=== PATIENT | female | born 1940 | race Caucasian/White ===

== ENCOUNTER 2025-03-02 12:00 | Outpatient (REF) | payer MEDICARE, SELFPAY ==
--- OUTSIDE RECORDS SUMMARY | 2025-03-01 10:42 | XMS_ITS | Continuity of Care Document ---
Author Organization [facility] ter Address [address] [place] [id number]- Care Team Providers Care Loading Unit Operator Name Role Phone Abimale Ring MD Primary Care Physician [phone] Encounter [facility] Date(s): 02/24/25 - 03/01/[address] [address]- Encounter Diagnosis Back pain(Final) - 02/24/25 Discharge Disposition: A-Transfer SNF Attending Physician: Jany Gamble MD Admitting Physician: Praveen Wiggins MD Referring Physician: Not on Staff, Referring MD Encounter Type: Disch IP Allergies, Adverse Reactions, Alerts Substance Criticality Severity Reaction Reaction Severity Status Glutens GI Distress Active Lactose GI Distress Active Functional Status Functional Status Assessment Assessment Assessment Component Result Effecti ve Date Unspecifed Functional Status Assessment Skin abnormality typ e (observable entity) Erythema 02/25/25 Functional Status Assessment Assessment Assessment Component Result Effecti ve Date Unspecifed Functional Status Assessment Skin abnormality typ e (observable entity) Erythema 02/26/25 Functional Status Assessment Assessment Assessment Component Result Effecti ve Date Total score [AUDIT] 0 02/25/25 Functional Status Assessment Assessment Assessment Component Result Effecti ve Date Total Falls Risk Score 11 02/27 Functional Status Assessment Assessment Assessment Component Result Effecti ve Date Mahesh scale total score 6 02/24/25 Functional Status Assessment Assessment Assessment Component Result Effecti ve Date Unspecifed Functional Status Assessment Skin abnormality typ e (observable entity) Erythema 02/25/25 Functional Status Assessment Assessment Assessment Component Result Effecti ve Date Total Falls Risk Score 2 02/28 Functional Status Assessment Assessment Assessment Component Result Effecti ve Date Total Falls Risk Score 14 02/27 Functional Status Assessment Assessment Assessment Component Result Effecti ve Date Mahesh scale total score 13 01/12 Functional Status Assessment Assessment Assessment Component Result Effecti ve Date Disability status [CUBS] I'm Building Capacity - I have an asymptomatic condition controlled by services or medication 02/25/25 Difficulty communica ting in usual language No 02/25/25 Difficulty Reading O r Writing No 02/25/25 Do you have difficul ty dressing or bathing Yes 02/25/25 Because of a physica l, mental, or emotional condition, do you have difficulty doing errands alone such as visiting a physician's office or shopping Yes 02/25/25 Do you need any additional assistance or accommodations during your visit Yes 02/25/25 Are you deaf, or do you have serious difficulty hearing No 02/25/25 Are you blind, or do you have serious difficulty seeing, even when wearing glasses No 02/25/25 Because of a physica l, mental, or emotional condition, do you have serious difficulty concentrating, remembering, or making decisions No 02/25/25 Do you have serious difficulty walking or climbing stairs Yes 02/25/25 Immunizations Given and Recorded Vaccine Date Status Refusal Reason tetanus/diphtheria/pertussis, acel(Tdap) 10/02/23 Given [id number] bivalent booster vax 12/21/21 Recorded influenza virus vaccine, inactivated 12/14/21 Leo rded influenza virus vaccine, inactivated 01/12/18 Give n SARS-CoV-2 (COVID-19) mRNA-1273 vaccine 08/06/21 R ecorded SARS-CoV-2 (COVID-19) mRNA-1273 vaccine 01/13/21 R ecorded SARS-CoV-2 (COVID-19) mRNA-1273 vaccine 06/12/20 R ecorded SARS-CoV-2 (COVID-19) mRNA-1273 vaccine 05/15/20 R ecorded Medications Alive Womens 50+ Multivitamin Gummy oral tablet, chewable 1 tablet, By Mouth, Daily, 0 Refills, Maintenance, 02/24/25 8:52:00 AM EST, Partial fill upon patient request if the prescription is for a schedule II opioid drug. Start Date: 02/24/25 Status: Ordered Medication Dispense Status: Completed Total Allowed Fills: 1 Fills Dispensed: 0 Caltrate 600 with D By Mouth, 2 times a day, 0 Refills, Maintenance, 3/5/12 2:07:30 PM EST Start Date: 05/24/11 Status: Ordered Medication Dispense Status: Completed Total Allowed Fills: 1 Fills Dispensed: 0 citalopram 20 mg oral tablet 20 mg, 1, tablet, By Mouth, Daily, # 30 tablet, Refills 0, Maintenance, 01/08/18 1:31:19 AM EDT Start Date: 01/08/18 Status: Ordered Medication Dispense Status: Completed Quantity: 30.0 Unit: tablet Total Allowed Fills: 1 Fills Dispensed: 0 diclofenac 1.3% topical film, extended release 1 patch, Topically, 2 times a day, PRN for pain, # 30 patch, 0 Refills, Maintenance, 02/24/25 8:48:00 AM EST, Patch, Partial fill upon patient request if the prescription is for a schedule II opioid drug. Start Date: 02/24/25 Status: Ordered Medication Dispense Status: Completed Quantity: 30.0 Unit: patch Total Allowed Fills: 1 Fills Dispensed: 0 famotidine 40 mg oral tablet 1 tablet = 40 mg, By Mouth, Daily, 0 Refills, Maintenance, 02/24/25 8:50:00 AM EST, Partial fill upon patient request if the prescription is for a schedule II opioid drug. Start Date: 02/24/25 Status: Ordered Medication Dispense Status: Completed Total Allowed Fills: 1 Fills Dispensed: 0 Gemtesa 75 mg oral tablet 1 tablet = 75 mg, By Mouth, Daily, # 30 tablet, 0 Refills, Maintenance, 02/24/25 8:48:00 AM EST, Tablet, Partial fill upon patient request if the prescription is for a schedule II opioid drug. Start Date: 02/24/25 Status: Ordered Medication Dispense Status: Completed Quantity: 30.0 Unit: tablet Total Allowed Fills: 1 Fills Dispensed: 0 Macrobid macrocrystals-monohydrate 100 mg oral capsule 1 capsule = 100 mg, By Mouth, 2 times a day, for 1 days, # 2 capsule, 0 Refills, Acute 03/02/25 9:04:00 AM EST, 03/01/25 9:04:00 AM EST, Capsule, Partial fill upon patient request if the prescriptionis for a schedule II opioid drug. Start Date: 03/01/25 Stop Date: 03/02/25 Status: Ordered Medication Dispense Status: Completed Quantity: 2.0 Unit: capsule Total Allowed Fills: 1 Fills Dispensed: 0 meclizine 12.5 mg oral tablet = 12.5 mg, By Mouth, 3 times a day, PRN Other, vertigo, 0 Refills, Maintenance, 02/28/25 10:42:00 AM EST, Tablet, Partial fill upon patient request if the prescription is for a schedule II opioid drug. Start Date: 02/28/25 Status: Ordered Medication Dispense Status: Completed Total Allowed Fills: 1 Fills Dispensed: 0 tolterodine 4 mg oral capsule, extended release 1 capsule = 4 mg, By Mouth, Daily, # 30 capsule, 0 Refills, Maintenance, 10/06/21 9:54:00 AM EDT, CRCapsule, Partial fill upon patient request if the prescription is for a schedule II opioid drug. Start Date: 10/06/21 Status: Ordered Medication Dispense Status: Completed Quantity: 30.0 Unit: capsule Total Allowed Fills: 1 Fills Dispensed: 0 Tums 500 = 500 mg, Daily, 0 Refills, Maintenance, 03/19/22 1:02:00 PM EST, Partial fill upon patient requestif the prescription is for a schedule II opioid drug. Start Date: 03/19/22 Status: Ordered Medication Dispense Status: Completed Total Allowed Fills: 1 Fills Dispensed: 0 Vitamin D3 = 1,000 International_Units, By Mouth, Daily, 0 Refills, Maintenance, 05/24/11 2:07:21 PM EST Start Date: 05/24/11 Status: Ordered Medication Dispense Status: Completed Total Allowed Fills: 1 Fills Dispensed: 0 warfarin 7.5 mg oral tablet = 7.5 mg, By Mouth, Daily at supper, 0 Refills, Maintenance, 12/20/23 12:33:00 PM EDT, Tablet, Partial fill upon patient request if the prescription is for a schedule II opioid drug. Start Date: 12/20/23 Status: Ordered Medication Dispense Status: Completed Total Allowed Fills: 1 Fills Dispensed: 0 Zepbound Pen 7.5 mg/0.5 mL subcutaneous solution = 7.5 mg, Subcutaneous Injection, Every week, Tuesday rotate injection sites, # 2 mL, 0 Refills, Maintenance, 02/24/25 8:48:00 AM EST, Solution, Partial fill upon patient request if the prescription is for a schedule II opioid drug. Start Date: 02/24/25 Status: Ordered Medication Dispense Status: Completed Quantity: 2.0 Unit: mL Total Allowed Fills: 1 Fills Dispensed: 0 Mental Status Mental Status Assessment Assessment Assessment Component Result Effecti ve Date Eliceo coma score total 15 02/12 Mental Status Assessment Assessment Assessment Component Result Effecti ve Date Eliceo coma score total 15 02/23/25 Problem List Condition Confirmation Course Effective Dates Status H ealth Status Informant Anxiety Confirmed Active Atrial fibrillation with RVR Confirmed Active Oral thrush Confirmed Active Chronic diarrhea Confirmed Active Transaminitis Confirmed Active GERD (gastroesophageal reflux disease) Confirmed Active IBS (irritable bowel syndrome) Confirmed Active Lymphedema Confirmed Active Severe obesity Confirmed Active Varicose vein Confirmed Active Venous insufficiency NOS Confirmed Active Results Radiology Reports * Exam Date Time Procedure Performing Provider Status 02/25/25 4:38 PM MRI Brain W/O Contrast Au th (Verified) Notes: (MRI Brain W/O Contrast) Reason For Exam: Vertigo RESULT: MRI Brain W/O Contrast MRI Brain W/O Contrast INDICATION / CLINICAL QUESTION: Reason: Vertigo; Clinical Question(s): Vertigo; Order Comment: Please see Reference Text for complete list of contraindications - TECHNIQUE: Multiplanar, multisequence MRI of the brain was performed without contrast. COMPARISON: CT head 02/24/2025 FINDINGS: BRAIN and EXTRA-AXIAL SPACES: The midline structures, including sella, corpus callosum, and craniocervical junction, are unremarkable. There is no mass effect, midline shift, or effacement of the basal cisterns. On diffusion weighted imaging, there are no regions of restricted diffusion to indicatean acute or subacute infarct. There is no evidence of intracranial hemorrhage on susceptibility sensitive sequence. Mild scattered foci of T2 prolongation are seen in the white matter. Ventricles, cisterns, and sulci are moderately prominent, consistent with volume loss, without hydrocephalus. No abnormal extra-axial fluid collections are seen. Meningeal surfaces are normal. Normal major intracranial flow voids are present. EXTRACRANIAL SOFT TISSUES: There have been lens replacements bilaterally. There is mild scattered mucosal thickening in the paranasal sinuses, without fluid levels. Trace fluid collection/hematoma noted along the left temporal scalp. BONES: Marrow signal is preserved. IMPRESSION: 1. No acute/subacute infarct, mass, hemorrhage, or other acute intracranial abnormality. 2. T2/FLAIR hyperintense foci in the white matter, nonspecific but most likely reflecting chronic small vessel disease. WSN: [id number] Ordering Physician: Blanca Colvin Dictated By: William Ness DO Dictated Date/Time: 02/25/25 4:56 pm Reviewed By: William Ness DO Signed By: William Ness DO Signed Date/Time: 02/25/25 4:56 pm Transcribed By: ROXANA Transcribed Date/Time: 02/25/25 4:47 pm * Exam Date Time Procedure Performing Provider Status 02/24/25 4:[address] Angio Neck Auth (Verif ied) Notes: (CT Angio Neck) Reason For Exam: Bleed/stroke;Trauma RESULT: CT Angio Neck CT Angio Head CT Angio Neck INDICATION: Generalized weakness with mechanical fall. TECHNIQUE: CT angiogram of the head and neck was performed after bolus administration of intravenous contrast. 100 mL of Isovue 300 100cc vials was administered intravenously. Coronal and sagittal MIP reformatted images were obtained. Additional 3-D images were created on a separate workstation under concurrent supervision by the attending radiologist. All stenoses are measured using NASCET criteria. Weight-based protocol using automatic tube modulation was used to optimize exposure parameters. CTDIvol Body: 17.86 mGy, DLP Body: 681 mGy*cm. COMPARISON: Noncontrast CT head performed concurrently. FINDINGS: CTA OF THE NECK: Arch: There is a two vessel aortic arch, with common origin of the brachiocephalic artery and left common carotid artery. There is mild atherosclerotic plaque of the aortic arch, but origins of the supra aortic vessels are patent. Calcified atherosclerotic plaque in the brachiocephalic trunk bifurcation, resulting in mild stenosis of the right subclavian artery. The remainder of the subclavian artery is patent and normal in caliber. Kinking of the proximal right common carotid artery. Scatteredcalcified atherosclerotic plaques throughout the left subclavian artery, resulting in no significant stenosis. Right carotid system: The common carotid and cervical internal carotid arteries are patent. No stenosis (0%) by NASCET criteria. There is no dissection or aneurysm. Left carotid system: The common carotid and cervical internal carotid arteries are patent. There ispartially calcified atherosclerotic plaque at the carotid bifurcation, but no ICA stenosis (0%) by NASCET criteria. There is no dissection or aneurysm. There is a co-dominant vertebral artery system. Right vertebral: No significant stenosis. No evidence of dissection or aneurysm. Left vertebral: No significant stenosis. Mild irregularity/tortuosity in the distal V2/proximal V3 segment. No evidence of dissection or aneurysm. Other: Soft tissues and bones: No evidence of lymphadenopathy or mass. The thyroid is unremarkable. Dependent atelectases, otherwise clear lungs. Multilevel degenerative changes of the spine are noted, without acute osseous abnormality. CTA OF THE HEAD: Anterior circulation: Bilateral intracranial ICAs demonstrate atherosclerotic calcification with mild stenoses of the bilateral cavernous and supraclinoid ICAs. Hypoplastic right A1, otherwise bilateral DUY and MCA branches are patent. There is no significant stenosis, proximal cutoff, aneurysm, orvascular malformation. Posterior circulation: Mild irregularity and tortuosity of the left V3 segment. Otherwise, bilateral intracranial vertebral arteries, the basilar artery, prominent right posterior communicating artery, and bilateral superior cerebellar and posterior cerebral branches are patent. There is no significant stenosis, proximal cutoff, aneurysm, or vascular malformation. Veins: Major dural venous sinuses are patent. Other: Soft tissues and bones: No midline shift or effacement of the basal cisterns. No space-occupying hemorrhage. No acute territorial loss of amador-white matter differentiation. There have been lens extractions bilaterally. Mucosal thickening of the ethmoid air cells and rightmaxillary sinus. IMPRESSION: 1. No large vessel occlusion in the head and neck. 2. Scattered mild atherosclerotic stenoses as detailed above. A similar preliminary report was provided by [facility]. I have personally reviewed the images and I agree with this report. WSN: [id number] Ordering Physician: Blanac Colvin Dictated By: Juma Harper MD Dictated Date/Time: 02/25/25 10:57 a Reviewed By: Andra Gonzalez MD Signed By: Andra Gonzalez MD Signed Date/Time: 02/25/25 11:02 am Transcribed By: ROXANA Transcribed Date/Time: 02/25/25 10:53 am * Exam Date Time Procedure Performing Provider Status 02/24/25 4:[address] Angio Head Auth (Verif ied) Notes: (CT Angio Head) Reason For Exam: Bleed/stroke;Vertigo RESULT: CT Angio Head CT Angio Head CT Angio Neck INDICATION: Generalized weakness with mechanical fall. TECHNIQUE: CT angiogram of the head and neck was performed after bolus administration of intravenous contrast. 100 mL of Isovue 300 100cc vials was administered intravenously. Coronal and sagittal MIP reformatted images were obtained. Additional 3-D images were created on a separate workstation under concurrent supervision by the attending radiologist. All stenoses are measured using NASCET criteria. Weight-based protocol using automatic tube modulation was used to optimize exposure parameters. CTDIvol Body: 17.86 mGy, DLP Body: 681 mGy*cm. COMPARISON: Noncontrast CT head performed concurrently. FINDINGS: CTA OF THE NECK: Arch: There is a two vessel aortic arch, with common origin of the brachiocephalic artery and left common carotid artery. There is mild atherosclerotic plaque of the aortic arch, but origins of the supra aortic vessels are patent. Calcified atherosclerotic plaque in the brachiocephalic trunk bifurcation, resulting in mild stenosis of the right subclavian artery. The remainder of the subclavian artery is patent and normal in caliber. Kinking of the proximal right common carotid artery. Scatteredcalcified atherosclerotic plaques throughout the left subclavian artery, resulting in no significant stenosis. Right carotid system: The common carotid and cervical internal carotid arteries are patent. No stenosis (0%) by NASCET criteria. There is no dissection or aneurysm. Left carotid system: The common carotid and cervical internal carotid arteries are patent. There ispartially calcified atherosclerotic plaque at the carotid bifurcation, but no ICA stenosis (0%) by NASCET criteria. There is no dissection or aneurysm. There is a co-dominant vertebral artery system. Right vertebral: No significant stenosis. No evidence of dissection or aneurysm. Left vertebral: No significant stenosis. Mild irregularity/tortuosity in the distal V2/proximal V3 segment. No evidence of dissection or aneurysm. Other: Soft tissues and bones: No evidence of lymphadenopathy or mass. The thyroid is unremarkable. Dependent atelectases, otherwise clear lungs. Multilevel degenerative changes of the spine are noted, without acute osseous abnormality. CTA OF THE HEAD: Anterior circulation: Bilateral intracranial ICAs demonstrate atherosclerotic calcification with mild stenoses of the bilateral cavernous and supraclinoid ICAs. Hypoplastic right A1, otherwise bilateral DUY and MCA branches are patent. There is no significant stenosis, proximal cutoff, aneurysm, orvascular malformation. Posterior circulation: Mild irregularity and tortuosity of the left V3 segment. Otherwise, bilateral intracranial vertebral arteries, the basilar artery, prominent right posterior communicating artery, and bilateral superior cerebellar and posterior cerebral branches are patent. There is no significant stenosis, proximal cutoff, aneurysm, or vascular malformation. Veins: Major dural venous sinuses are patent. Other: Soft tissues and bones: No midline shift or effacement of the basal cisterns. No space-occupying hemorrhage. No acute territorial loss of amador-white matter differentiation. There have been lens extractions bilaterally. Mucosal thickening of the ethmoid air cells and rightmaxillary sinus. IMPRESSION: 1. No large vessel occlusion in the head and neck. 2. Scattered mild atherosclerotic stenoses as detailed above. A similar preliminary report was provided by [facility]. I have personally reviewed the images and I agree with this report. WSN: [id number] Ordering Physician: Blanca Colvin Dictated By: Juma Harper MD Dictated Date/Time: 02/25/25 10:57 a Reviewed By: Andra Gonzalez MD Signed By: Andra Gonzalez MD Signed Date/Time: 02/25/25 11:02 am Transcribed By: ROXANA Transcribed Date/Time: 02/25/25 10:53 am * Exam Date Time Procedure Performing Provider Status 02/24/25 1:[address] Angio Chest Auth (Beny phillips) Notes: (CT Angio Chest) Reason For Exam: PE suspected, Intermediate prob;Other: RESULT: CT Angio Chest CT Angio Chest INDICATION: Mechanical fall, states that her legs gave out. Denies LOC, unsure if head strike unsure what part of her body she initially fell on but reports back pain. no head pain. increasing diffculty ambulating baseline due to arthritis in knees; Reason: PE suspected, Intermediate prob; Clinical Question(s): Pulmonary Embolism TECHNIQUE: Spiral CTA of the chest was performed after rapid IV contrast administration without cardiac gating, triggered by an VICKIE on the main pulmonary artery. Images are formatted in multiple planes using 2-D multiplanar and 3-D maximum intensity projection. 70 cc of Isovue 300 100cc vials was administered intravenously. Weight-based protocol using automatic tube modulation was used to optimize exposure parameters. CTDIvol Body: 12.83 mGy, DLP Body: 858 mGy*cm. COMPARISONS: None. ANGIOGRAPHIC FINDINGS: No pulmonary embolism to the subsegmental level. Motion degradation moderately limits assessment ofdistal vessels. Normal caliber pulmonary arteries. Mild atherosclerotic calcification of the aorta without acute abnormality on this study performed without cardiac gating. NON-ANGIOGRAPHIC FINDINGS: Industrial Registered Nurse view findings, lines and tubes: None. Trachea and airways: Patent without evidence of tracheal or endobronchial lesion. Lungs and pleura: Moderate bilateral dependent atelectasis. Subsegmental atelectasis in the lingula. No consolidation. Faint 4 mm left upper lobe nodule (404:34). A solid nodule in the posterior leftlower lobe measuring 4 x 5 mm (404:71). No effusion or pneumothorax. Mediastinum and maliha: No mass or hematoma. No mediastinal or hilar lymphadenopathy. Dilated esophagus containing fluid and debris, which can elevate the risk of aspiration. Partially imaged thyroid is unremarkable. Heart: Heart is normal in size. Trace pericardial fluid without jammie effusion. Mild coronary artery calcification. Chest wall soft tissues: No acute abnormality. Diaphragm: Intact. Upper abdomen: No acute abnormality. Multiple circumscribed low-attenuation lesions in the liver compatible with simple cysts. Postsurgical changes in the right hepatic lobe. Bones: No acute abnormality. IMPRESSION: No evidence of pulmonary embolism. The esophagus is dilated and contains fluid/debris, which can elevate the risk of aspiration. No consolidation or findings of aspiration pneumonitis. There are two left lung nodules measuring up to 5 mm. If low risk for malignancy, no routine follow-up. If high risk, optional CT at 12 months. If unchanged, no further follow-up needed per Guidelines for Management of Incidental Pulmonary Nodules Detected on CT Images: From the Fleischner Society 2017. I have personally reviewed the images and I agree with this report. WSN: [id number] Ordering Physician: Griffin Castrejon Dictated By: bAe oBland MD Dictated Date/Time: 02/24/25 7:21 am Reviewed By: Shabbir Cunha MD Signed By: Shabbir Cunha MD Signed Date/Time: 02/24/25 7:26 am Transcribed By: ROXANA Transcribed Date/Time: 02/24/25 2:09 am * Exam Date Time Procedure Performing Provider Status 02/24/25 12:[address] Lumbar Spine W/O Contrast Auth (Verified) Notes: (CT Lumbar Spine W/O Contrast) Reason For Exam: Trauma RESULT: CT Lumbar Spine W/O Contrast CT Thoracic Spine W/O Contrast, CT Lumbar Spine W/O Contrast INDICATION: from home, pt experienced mechanical fall, states that her legs gave out. denies LOC, unsure if head strike unsure what part of her body she initially fell on but reports back pain. no head pain. increasing diffculty ambulating baseline due to arthritis in knees; Reason: Trauma; Clinical Question(s): Fracture Dislocation TECHNIQUE: Noncontrast CT of the thoracic and lumbar spine was performed. Bone and soft tissue algorithms were reconstructed along with coronal and sagittal computations. Weight-based protocol using automatic tube modulation was used to optimize exposure parameters. RADIATION DOSE PARAMETERS: CTDIvol Body: 64.20 mGy, DLP Body: 3492 mGy*cm. COMPARISON: 10/02/2023. FINDINGS: Spine: No fractures or bone lesion. Moderate multilevel degenerative changes are noted in the thoracic and lumbar spine including disc height loss, vacuum disc phenomenon, disc bulging, and bridging anterior osteophyte formation. Mild grade 1 anterolisthesis of L3 on L4. Unchanged focus of patchy sclerosis/bone island in the right ilium. Soft tissues: No acute abnormality in the paravertebral soft tissues. Mild bilateral dependent atelectasis. Partially visualized hepatic cyst is again noted. Postsurgical changes in the liver. Multiple bilateral simple cysts of the partially visualized kidneys, which require no dedicated imaging follow-up. Atherosclerotic vascular calcifications of the visualized abdominopelvic vasculature. IMPRESSION: Degenerative changes without evidence of an acute fracture or dislocation involving the thoracic orlumbar spine. I have personally reviewed the images and I agree with this report. WSN: [id number] Ordering Physician: Heather Tejeda Dictated By: Abe Boland MD Dictated Date/Time: 02/24/25 7:28 am Reviewed By: Shabbir Cunha MD Signed By: Shabbir Cunha MD Signed Date/Time: 02/24/25 7:33 am Transcribed By: ROXANA Transcribed Date/Time: 02/24/25 1:17 am * Exam Date Time Procedure Performing Provider Status 02/24/25 12:[address] Thoracic Spine W/O Contrast Auth (Verified) Notes: (CT Thoracic Spine W/O Contrast) Reason For Exam: Trauma RESULT: CT Thoracic Spine W/O Contrast CT Thoracic Spine W/O Contrast, CT Lumbar Spine W/O Contrast INDICATION: from home, pt experienced mechanical fall, states that her legs gave out. denies LOC, unsure if head strike unsure what part of her body she initially fell on but reports back pain. no head pain. increasing diffculty ambulating baseline due to arthritis in knees; Reason: Trauma; Clinical Question(s): Fracture Dislocation TECHNIQUE: Noncontrast CT of the thoracic and lumbar spine was performed. Bone and soft tissue algorithms were reconstructed along with coronal and sagittal computations. Weight-based protocol using automatic tube modulation was used to optimize exposure parameters. RADIATION DOSE PARAMETERS: CTDIvol Body: 64.20 mGy, DLP Body: 3492 mGy*cm. COMPARISON: 10/02/2023. FINDINGS: Spine: No fractures or bone lesion. Moderate multilevel degenerative changes are noted in the thoracic and lumbar spine including disc height loss, vacuum disc phenomenon, disc bulging, and bridging anterior osteophyte formation. Mild grade 1 anterolisthesis of L3 on L4. Unchanged focus of patchy sclerosis/bone island in the right ilium. Soft tissues: No acute abnormality in the paravertebral soft tissues. Mild bilateral dependent atelectasis. Partially visualized hepatic cyst is again noted. Postsurgical changes in the liver. Multiple bilateral simple cysts of the partially visualized kidneys, which require no dedicated imaging follow-up. Atherosclerotic vascular calcifications of the visualized abdominopelvic vasculature. IMPRESSION: Degenerative changes without evidence of an acute fracture or dislocation involving the thoracic orlumbar spine. I have personally reviewed the images and I agree with this report. WSN: [id number] Ordering Physician: Heather Tejeda Dictated By: Abe Boland MD Dictated Date/Time: 02/24/25 7:28 am Reviewed By: Shabbir Cunha MD Signed By: Shabbir Cunha MD Signed Date/Time: 02/24/25 7:33 am Transcribed By: ROXANA Transcribed Date/Time: 02/24/25 1:17 am * Exam Date Time Procedure Performing Provider Status 02/24/25 12:[address] Cervical Spine W/O Contrast Auth (Verified) Notes: (CT Cervical Spine W/O Contrast) Reason For Exam: Neck Pain;Other: RESULT: CT Cervical Spine W/O Contrast CT Head/Brain W/O Contrast, CT Cervical Spine W/O Contrast INDICATION: from home, pt experienced mechanical fall, states that her legs gave out. Denies loc, unsure if hs. Unsure what part of her body she initially fell on but reports back pain. no head pain.increasing difficulty ambulating baseline d t arthritis in knees; Reason: Trauma; Clinical Question(s): Subarachnoid Hemorrhage TECHNIQUE: Noncontrast head CT using axial technique was reconstructed in axial and coronal planes.Noncontrast spiral CT through the cervical spine was formatted in 3 planes. Automatic tube modulation was used for the cervical spine and iterative dose reconstruction was used for both the head and cervical spine to optimize scan parameters and image quality. CTDIvol Body: 23.90 mGy, DLP Body: 589 mGy*cm. CTDIvol Head: 40.20 mGy, DLP Head: 671 mGy*cm. COMPARISON: Noncontrast CT head and cervical spine-10/01/2023. FINDINGS: Industrial Registered Nurse View Findings, Lines and Tubes: Dental implant noted. BRAIN AND EXTRA-AXIAL SPACES: No parenchymal hemorrhage, midline shift, or mass effect. Amador-white matter differentiation is wellpreserved. No acute infarct. Negative insular ribbon sign. Atherosclerotic vascular calcification of the carotid arteries but negative hyperdense vessel sign. Mild prominence of the ventricles and sulci consistent with parenchymal volume loss. Mild low-density white matter changes. No subarachnoid hemorrhage. No subdural or epidural collection. CALVARIUM, SKULL BASE, AND SOFT TISSUES: No fractures or suspicious bony lesions. Hyperostosis frontalis interna. Mucosal thickening in the bilateral ethmoid air cells and the right maxillary sinus. Tiny polyp/mucus retention cyst in the left maxillary sinus. Otherwise, visualized paranasal sinuses and mastoid air cells are clear. Status-post bilateral lens extraction. The extracranial soft tissues are unremarkable. CERVICAL SPINE: No fracture. No acute osseous abnormalities. Normal alignment. No locked or perched facet. Moderate multilevel degenerative disc space narrowingand end plate irregularity. Left greater than right bilateral multilevel facet arthropathy. Unchanged bone island at the posterior aspect of the C6 vertebral body. OTHER BONES: No acute abnormality. CERVICAL SOFT TISSUES AND LUNG APICES: Normal soft tissues. Visualized lung apices are clear. Normal thyroid. IMPRESSION: No acute abnormality of the head or cervical spine. I have personally reviewed the images and I agree with this report. WSN: [id number] Ordering Physician: Heather Tejeda Dictated By: Abe Boland MD Dictated Date/Time: 02/24/25 7:08 am Reviewed By: Shabbir Cunha MD Signed By: Shabbir Cunha MD Signed Date/Time: 02/24/25 7:13 am Transcribed By: ROXANA Transcribed Date/Time: 02/24/25 0:44 am * Exam Date Time Procedure Performing Provider Status 02/24/25 12:[address] Head/Brain W/O Contrast Auth (Verified) Notes: (CT Head/Brain W/O Contrast) Reason For Exam: Trauma RESULT: CT Head/Brain W/O Contrast CT Head/Brain W/O Contrast, CT Cervical Spine W/O Contrast INDICATION: from home, pt experienced mechanical fall, states that her legs gave out. Denies loc, unsure if hs. Unsure what part of her body she initially fell on but reports back pain. no head pain.increasing difficulty ambulating baseline d t arthritis in knees; Reason: Trauma; Clinical Question(s): Subarachnoid Hemorrhage TECHNIQUE: Noncontrast head CT using axial technique was reconstructed in axial and coronal planes.Noncontrast spiral CT through the cervical spine was formatted in 3 planes. Automatic tube modulation was used for the cervical spine and iterative dose reconstruction was used for both the head and cervical spine to optimize scan parameters and image quality. CTDIvol Body: 23.90 mGy, DLP Body: 589 mGy*cm. CTDIvol Head: 40.20 mGy, DLP Head: 671 mGy*cm. COMPARISON: Noncontrast CT head and cervical spine-10/01/2023. FINDINGS: Industrial Registered Nurse View Findings, Lines and Tubes: Dental implant noted. BRAIN AND EXTRA-AXIAL SPACES: No parenchymal hemorrhage, midline shift, or mass effect. Amador-white matter differentiation is wellpreserved. No acute infarct. Negative insular ribbon sign. Atherosclerotic vascular calcification of the carotid arteries but negative hyperdense vessel sign. Mild prominence of the ventricles and sulci consistent with parenchymal volume loss. Mild low-density white matter changes. No subarachnoid hemorrhage. No subdural or epidural collection. CALVARIUM, SKULL BASE, AND SOFT TISSUES: No fractures or suspicious bony lesions. Hyperostosis frontalis interna. Mucosal thickening in the bilateral ethmoid air cells and the right maxillary sinus. Tiny polyp/mucus retention cyst in the left maxillary sinus. Otherwise, visualized paranasal sinuses and mastoid air cells are clear. Status-post bilateral lens extraction. The extracranial soft tissues are unremarkable. CERVICAL SPINE: No fracture. No acute osseous abnormalities. Normal alignment. No locked or perched facet. Moderate multilevel degenerative disc space narrowingand end plate irregularity. Left greater than right bilateral multilevel facet arthropathy. Unchanged bone island at the posterior aspect of the C6 vertebral body. OTHER BONES: No acute abnormality. CERVICAL SOFT TISSUES AND LUNG APICES: Normal soft tissues. Visualized lung apices are clear. Normal thyroid. IMPRESSION: No acute abnormality of the head or cervical spine. I have personally reviewed the images and I agree with this report. WSN: [id number] Ordering Physician: Heather Tejeda Dictated By: Abe Boland MD Dictated Date/Time: 02/24/25 7:08 am Reviewed By: Shabbir Cunha MD Signed By: Shabbir Cunha MD Signed Date/Time: 02/24/25 7:13 am Transcribed By: ROXANA Transcribed Date/Time: 02/24/25 0:44 am Vital Signs Most recent to oldest [Reference Range]: 1 2 3 Height 163 cm (03/01/25 8:56 AM) 163 cm (03/01/25 4:23 AM) 163 cm (03/01/25 12:08 AM) Weight 124.5 kg (02/25/25 5:45 PM) 124.5 kg (02/24/25 7:45 AM) 124.5 kg (02/24/25 2:07 AM) Oxygen Saturation [94-100 %] 95 % (03/01/25 8:56 AM) 92 % *L* (03/01/25 8:00 AM) 95 % (03/01/25 4:23 AM) Pulse Rate [55-90 bpm] 86 bpm (03/01/25 8:56 AM) 83 bpm (03/01/25 8:00 AM) 88 bpm (03/01/25 4:23 AM) Body Mass Index [18.5-24.99 kg/m2] 46.86 kg/m2 *H* (02/25/25 5:45 PM) 46.86 kg/m2 *H* (02/24/25 7:45 AM) 46.86 kg/m2 *H* (02/24/25 2:07 AM) Blood Pressure [90-138/55-84 mm Hg] 155/76mm Hg *H* (03/01/25 8:56 AM) 140/77mm Hg *H* (03/01/25 8:00 AM) 142/80mm Hg *H* (03/01/25 4:23 AM) Respiratory Rate [16-30 br/min] 20 br/min (03/01/25 8:56 AM) 18 br/min (03/01/25 8:00 AM) 18 br/min (03/01/25 4:23 AM) Temperature [96.8-100.4 DegF] 97.7 DegF (03/01/25 8:56 AM) 98.0 DegF (03/01/25 4:23 AM) 98.9 DegF (03/01/25 12:08 AM) Liters per Minute 2 L/min (02/26/25 8:00 AM) 2 L/min (02/26/25 5:35 AM) 2 L/min (02/26/25 1:49 AM) Mode of Delivery (Oxygen) Room air (03/01/25 8:56 AM) Room air (03/01/25 8:00 AM) Room air (03/01/25 4:23 AM) Blood pressure sites Arm, right (03/01/25 8:56 AM) Arm, right (03/01/25 8:00 AM) Arm, right (03/01/25 4:23 AM) Temperature Route Oral (03/01/25 8:56 AM) Oral (03/01/25 4:23 AM) Oral (03/01/25 12:08 AM) Dry Weight 124.5 kg (02/25/25 5:45 PM) 124.5 kg (02/24/25 7:45 AM) 124.5 kg (02/24/25 2:07 AM) Weight Obtained Via Patient/family state d (02/23/25 10:42 PM) Dry Weight Obtained Via Patient/family s tated (02/23/25 10:42 PM) Social History Social History Type Response Smoking Status Never smoker; Tobacc o user in household: No entered on: 12/25/13 Sex Female Sex Representation Female (finding) Status N/A Social Determinants of Health Assessment Assessment Assessment Component Result Effecti ve Date Unspecifed Social Determinants of Health Assessment Housing status I have housing 02/25/25 Are you worried abou t losing your housing [PRAPARE] No 02/25/25 How often do you see or talk to people that you care about and feel close to [PRAPARE] 6 or more times a week 02/25/25 Do you feel physical ly and emotionally safe where you currently live [PRAPARE] Yes 02/25/25 Have you or any fami ly members you live with been unable to get any of the following when it was really needed in past 1 year [PRAPARE] None 02/25/25 Has lack of transpor tation kept you from medical appointments, meetings, work, or from getting things needed for daily living No 02/25/25 Within the last year , have you been afraid of your partner or ex-partner No 02/25/25 Admission evaluation note * Blanca Colvin MD: PERFORM Event Display: Admission Note Authored Date: Patient: ??NICHOLAS BLANCHARD ? Age:??84 Years?Sex:??Female?:??1940?LOC:??[facility]?? Chief Complaint/Reason for Consultation from home, experienced ??[facility]. no hs, no loc, neg thinners, neg defomrities. endorsing midline back pain. states he knees and legs have been weak, had home PT x5 wks no improvement. 1 episode of emesis History of Present Illness Nicholas Blanchard is a 84F with pertinent medical history of Afib on Coumadin, irritable bowel syndrome,osteoarthritis, overactive bladder, chronic lymphedema and left sided humerus fracture presentedto ED following a fall at home. ?? Per patient, she was walking to her kitchen and felt like her knees gave away; states she feels shefelt backwards and unclear if she hit her head. No prodromal symptoms of dizziness/lightheadedness/nausea/vomiting before the fall. No LOC. Her called the EMS, who helped to sit her up, however she felt dizzy and vomited 4 times. No headache/confusion. She states she has had 3-4 episodes of fall in the past, however none were similar to this episode.?? Post fall, she complains of ongoing back pain, located to region of lumbar spine; associated withmarked tenderness. No skin bruising.?? She mentions she has urinary incontinence and recently received botox injection which helped with her symptoms intermittently, but noticed increased fequency??lately. No dysuria/burning micturition/suprapubic tenderness. ?? In ED: Vitals: T-98.2, P-105/min improved to 85/min with fluids; BP- 120s-145/70-80s saturating on 2L NC now Labs: Hb 13, WBC 11.2, Plt 219 INR 2.5 Na 141, K 4.4, Cl 104 Cr 1.04 ?? CT head/spine s/o no acute abnormality. Degenerative changes without evidence of acute fracture or dislocation in thoracic and lumbar spine. CTA chest r/o PE; dilated esophagus with increased risk for aspiration; no consolidation or findings for aspiration pneumonitis; unchanged 2 left lung nodules measuring upto 5mm. ?? UA 3+leukocyte, nitrites, slight bacteria; concerning fro UTI and thus received 1 dose of ceftriaxone and fluids.? When I went to see the patient, she was comfortable in her bed and was later joined by her on the bedside. She was emotional from recent sudden demise of her only sister from a brain bleedfollowing a fall; and was anxious about the same.?? Review of Systems Constitutional:??No weight loss, fever, chills, weakness or fatigue. Allergy/Immune: Denies any??Eczema or hives Eyes:??No visual loss, blurred vision, double vision or yellow sclera ENT:??No hearing loss, sneezing, congestion, runny nose or sore throat. Respiratory:??No shortness of breath, cough or sputum production. Cardiovascular:??No chest pain, chest pressure or chest discomfort. No palpitations or pedal edema. Gastrointestinal:??No anorexia, nausea, vomiting or diarrhea. No abdominal pain or blood in stool. Genitourinary:??No burning micturition. No urinary frequency or incontinence. Neurologic:+Dizziness of sitting up and eye movement??No headache, syncope, unilateral weakness, ataxia, numbness or tingling in the extremities. No change in bowel or bladder control. Musculoskeletal:+Back pain, central lumbar region??No muscle pain, joint pain or stiffness. Hematologic/Lymphatics:??No bleeding or bruising. No painful lymph nodes. Skin:??No rash or itching. Endocrine:??No reports of sweating. No cold or heat intolerance. No polyuria or polydipsia. Psychiatric:??No depression or anxiety. Objective Vital Signs?? Temperature: 98.6 DegF (02/24/25 07:45:00) Temperature Route: Oral (02/24/25 07:45:00) Pulse Rate:??96 bpm??High (02/24/25 15:56:00) Respiratory Rate: 17 br/min (02/24/25 15:56:00) Systolic Blood Pressure: 132 mm Hg (02/24/25 15:56:00) Diastolic Blood Pressure: 78 mm Hg (02/24/25 15:56:00) Blood pressure sites: Arm, right (02/24/25 15:56:00) Mean Arterial Pressure: 103 mm Hg (02/24/25 07:45:00) Pulse Pressure: 54 mm Hg (02/24/25 15:56:00) Oxygen Saturation: 96 % (02/24/25 15:56:00) Liters per Minute: 2 L/min (02/24/25 15:56:00) Mode of Delivery (Oxygen): Nasal cannula (02/24/25 15:56:00) Early Warning Score: 0 (02/24/25 16:08:00) ? Physical Exam Constitutional: Alert, in no distress. Mental Status: Oriented to person, place and time. Head: Normocephalic. Eyes: Pupils are equal, round and reactive to light. Extraocular muscles intact. Dizziness with extraocular movements, no nystagmus. Neck: Supple, Full range of motion. Respiratory: Clear to auscultation. No wheezing, rales or rhonchi. Cardiovascular: S1 S2 regular. No murmurs, rubs or gallops. Gastrointestinal: Abdomen soft, non-tender, non-distended. Normal bowel sounds. No pulsatile mass. No hepatosplenomegaly. Genitourinary: No costovertebral angle tenderness. Neurologic: Cranial nerves II-XII grossly intact. No focal neurological deficits. Flexor plantar response. Moves all extremities spontaneously. Sensation intact bilaterally. Skin: No rashes or lesions. No petechiae or purpura.?? Musculoskeletal: No cyanosis or clubbing. No gross deformities. Normal range of motion. Bilateral??pedal edema with??venous stasis.??Warm??well perfused??extremities. Psychiatric: Normal mood and affect Assessment/Plan Diagnoses Atrial fibrillation ??(I48.91) Back pain ??(M54.9) DVT (deep venous thrombosis) ??(I82.409) Dizziness ??(R42) Fall at home ??(W19.XXXA) CLOVER (generalized anxiety disorder) ??(F41.1) Head trauma ??(S09.90XA) Irritable bowel syndrome (IBS) ??(K58.9) OAB (overactive bladder) ??(N32.81) SIRS (systemic inflammatory response syndrome) ??(R65.10) Urinary tract infection ??(N39.0) ?? Assessment:??Nicholas Blanchard??84F with pertinent medical history of Afib on Coumadin, irritable bowel syndrome,osteoarthritis, overactive bladder, chronic lymphedema and recent left sided humerus fracture presented to ED following a fall at home with acute trauma r/o; admitted for concerns SIRS??with UTI and rule out of posterior circulation stroke. Neurology consulted, and following. ?? Fall at home (W19.XXXA) Dizziness (R42) Head trauma (S09.90XA) Back pain (M54.9) ? Patient had a fall at home; with no LOC and prodromal symptoms. Post- fall no state of confusion; however had 4 episodes of vomiting and dizziness (with position change and eye movements); along with pain and tenderness in lumbar region. CT head/spine ruled out acute trauma/fractures.?? No brusing??on??skin. Given the findings differentials include posterior circulation stroke, fall due to hypotension likely due to UTI, post-concussion syndrome. Neurology consulted and following, recommendations followed.?? Plan: -Neurology recommended: ??-CT angio head and neck ??-MRI brain without contrast ??-Continue Warfarin for now; no need for reversal yet -Orthostatics once pain is managed -PRN Tylenol for pain -Telemetry -PT eval later on in the hospital course ?? Urinary tract infection (N39.0) SIRS (systemic inflammatory response syndrome) (R65.10) ? Patient mentions having 3 UTI in last 1-2 years; states she has received antibiotics all the time; last episode was in 12/13 (completed Nitrofurantoin course). SIRS criteria met based on initial vitals. Unable to state symptoms since it overlaps with urinary incontinence UA s/o??3+leukocyte, nitrites, slight bacteria Plan: -Follow urine culture -Continue Ceftriaxone; can be discontinued if infection ruled out -Lactate level ?? OAB (overactive bladder) (N32.81):??Chronic history of overactive bladder with incontinence; statesshe leaks urine with standing up and wears diapers. On home Tolterodine and Vibegron (non-formulary) Plan: -Asked the patient to bring home medications and can be started here ?? Atrial fibrillation (I48.91) DVT (deep venous thrombosis) (I82.409) ? Patient mentions history of??DVT, likely in her hip but unable to tell more.?? She is on Coumadin; with goal INR 2-3.?? INR today 2.5 Plan: -Coumadin 7.5 every alternate day; 10mg on Fridays -Discussed with neurology, no reason to discontinue or reverse Coumadin currently -continue to monitor INR? CLOVER (generalized anxiety disorder) (F41.1):??Continue home Citalopram Irritable bowel syndrome (IBS) (K58.9):??Patient states alternate diarrhoea and constipation; had last bowel movement yesterday.? Quality Measures Code Status: Full Code Diet: Regular DVT prophylaxis: Coumadin (for Afiba dn h/o DVT) GI prophylaxis: Famotidine HCP/Family Update: Updated Padmaja (HCP) on bedside ?? Patient seen and discussed with Dr. Fredi Colvin MD Internal Medicine PGY1 ? Histories Allergies Allergies ?(Active and Proposed Allergies Only) Lactose? (Severity: Unknown severity, Onset: Unknown) ?Reactions: GI Distress Glutens? (Severity: Unknown severity, Onset: Unknown) ?Reactions: GI Distress ? Past Medical History/Problem List Active Problems(11) Anxiety Atrial fibrillation with RVR Chronic diarrhea GERD (gastroesophageal reflux disease) IBS (irritable bowel syndrome) Lymphedema Oral thrush Severe obesity Transaminitis Varicose vein Venous insufficiency NOS ? Social History Alcohol Details:??Use: Never. Employment/School Details:??Status: Retired. Exercise Details:??Self assessment: Poor condition. ??Regular exercise: No. Home/Environment Details:??Living situation: Home/Independent. ??Lives with: Spouse. Nutrition/Health Details:??Diet: Gluten free, lactose free. Substance Abuse Details:??Use: Never. Tobacco Details:??Use: Never smoker. ??Tobacco user in household: No. ? Family History Mother??(): Cancer of breast; Hysterectomy Father??(): Bladder cancer; Pancreatic cancer Sister: Cancer of breast; Hysterectomy ? Medications Home Medications Calcium And Vitamin D Combination (Caltrate 600 with D)??By Mouth 2 times a day Calcium Carbonate (Tums 500)??500 Milligram Daily Cholecalciferol (Vitamin D3)??1,000 International Unit By Mouth Daily Citalopram (citalopram 20 mg oral tablet)??20 Milligram 1 tablet By Mouth Daily Diclofenac Topical (diclofenac 1.3% topical film, extended release)??1 patch(es) Topically 2 times a day as needed for pain Famotidine (famotidine 40 mg oral tablet)??1 tab(s) 40 Milligram By Mouth Daily Multivitamin With Minerals (Alive Womens 50+ Multivitamin Gummy oral tablet, chewable)??1 tab(s) ByMouth Daily tirzepatide (Zepbound Pen 7.5 mg/0.5 mL subcutaneous solution)??7.5 Milligram Subcutaneous Injection Every week Tuesday rotate injection sites Tolterodine (tolterodine 4 mg oral capsule, extended release)??1 capsule 4 Milligram By Mouth Daily vibegron (Gemtesa 75 mg oral tablet)??1 tab(s) 75 Milligram By Mouth Daily Warfarin (warfarin 7.5 mg oral tablet)??7.5 Milligram By Mouth Daily at supper ? Results Abnormal Labs ?? BLOOD COUNT & DIFF Abs. Imm Gran?0.0 k/mm3 ()?02/24/2025 15:23 Abs. NRBC?0.0 k/mm3 ()?02/24/2025 15:23 Imm Gran?0.4 % ()?02/24/2025 15:23 Lymph %?11.8 % (Low)?02/24/2025 15:23 MCH?26.9 pg (Low)?02/24/2025 15:23 MCHC?31.9 Gm/dL (Low)?02/24/2025 15:23 Neut %?78.4 % (High)?02/24/2025 15:23 Nucleated RBC (Automated)?0.0 #/100 WBC'S ()?02/24/2025 15:23 RDW-SD?54.0 femtoliters (High)?02/24/2025 15:23 ?? CHEM GENERAL BUN?24 mg/dL (High)?02/24/2025 00:39 Creatinine-Blood?1.04 mg/dL (High)?02/24/2025 00:39 Estimated GFR Creatinine?54 ML/MIN/1.73 M2 ()?02/24/2025 00:39 Glucose Level?114 mg/dL (High)?02/24/2025 00:39 Glucose, POC?121 mg/dL (High)?02/24/2025 00:33 ?? COAG APTT?35.9 seconds (High)?02/24/2025 01:28 INR?2.5 (High)?02/24/2025 01:28 Protime (PT)?23.7 seconds (High)?02/24/2025 01:28 ?? UA/URINALYSIS Albumin, Urine?TRACE (Abnormal)?02/24/2025 02:05 Appear/Color, Urine?LIGHT YELLOW ()?02/24/2025:05 Bacteria?SLIGHT HPF (Abnormal)?02/24/2025 02:05 Bilirubin, Urine?NEGATIVE ()?02/24/2025:05 Glucose, Urine?NEGATIVE ()?02/24/2025 02:05 Hemoglobin, Urine?TRACE (Abnormal)?02/24/2025 02:05 Hold Urine Culture?Testing available 48 hours from time of collection. () ?02/24/2025:05 Ketones, Urine?NEGATIVE ()?02/24/2025 02:05 Leukocyte, Urine?3+ (Abnormal)?02/24/2025 02:05 Mucus?SLIGHT /LPF ()?02/24/2025 02:05 Nitrite, Urine?POSITIVE (Abnormal)?02/24/2025 02:05 RBC's, Urine?7 /HPF (High)?02/24/2025 02:05 Urobilinogen?NORMAL mg/dL ()?02/24/2025 02:05 WBC's, Urine?44 /HPF (High)?02/24/2025 02:05 ?? Note: Critical results are displayed in red. ? Electronically Signed on 02/24/25 05:52 PM Vinicius BENJAMIN, Blanca * Fredi BENJAMIN, Lalo R: PERFORM Event Display: Admission Note Authored Date: [id number] Attending Attestation: I have seen and evaluated this patient. I have discussed the case and its management with the resident and agree with the findings and plan as documented in the resident???s note. The patient is a 84-year-old female with above-mentioned past medical history who was admitted after fall with potential head strike (anticoagulated on warfarin).?? Laboratory workup largely unrevealing with mild increased leukocytes, no significant anemia, therapeutic INR, no significant electrolyte derangements.?? CT head negative for acute bleed or infarct, CT angio chest negative for PE, CT thoracic cervical and lumbar spine negative for acute fracture.?? Patient did vomit after initial fall and continues to endorse dizziness with even minor changes in head position and during extraoculareye examination.?? Otherwise neurological exam unremarkable.?? Unclear what precipitated the fall as patient states she recalls falling but cannot clearly state any prodromal symptoms, denies blacking out.?? Consulted neurology given patient had fall with possible head strike while on Coumadin and now with new persistent dizziness, which would not be typical for vertigo (patient denied any past vertigo history).?? Will continue on Coumadin, obtain imaging as per neurology to rule out posterior circulation stroke.?? Patient also with increased urinary frequency which could be a symptom of UTI,?? though she does carry diagnosis of overactive bladder.?? Will treat with ceftriaxone and follow-up urine culture.?? Will monitor patient on telemetry and check orthostatic signs once her pain is better controlled.?? Patient is full code. Electronically Signed on 02/24/25 08:49 PM Fredi BENJAMIN, Lalo Vilchis EKG study * Event Display: EKG Authored Date: * Event Display: EKG Authored Date: * Event Display: ECG 12-Lead Authored Date: Please click on pdf link to open report * Event Display: ECG 12-Lead Authored Date: Ventricular Rate: 95 BPM Atrial Rate: 95 BPM P-R Interval: 320 ms QRS Duration: 140 ms Q-T Interval: 388 ms QTC Calculation(Bazett): 487 ms R Sterling: -47 degrees T Sterling: -5 degrees Sinus rhythm with Premature atrial complexes with 1st degree A-V block Right bundle branch block Left anterior fascicular block Bifascicular block Cannot rule out Inferior infarct (masked by fascicular block?) , age undetermined Abnormal ECG When compared with ECG of 23-Feb-2025 23:02, No significant change was found Confirmed by SUDHIR GENAO MD ([id number]) on 02/28/2025 8:24:20 AM [place]: SUDHIR GENAO MD * Event Display: ECG 12-Lead Authored Date: Please click on pdf link to open report * Event Display: ECG 12-Lead Authored Date: Ventricular Rate: 104 BPM QRS Duration: 142 ms Q-T Interval: 366 ms QTC Calculation(Bazett): 481 ms R Sterling: -53 degrees T Sterling: -6 degrees Probably Sinus tachycardia with 1st degree A-V block Right bundle branch block Left anterior fascicular block Bifascicular block Possible Lateral infarct , age undetermined Cannot rule out Inferior infarct (masked by fascicular block?) , age undetermined Abnormal ECG When compared with ECG of 15-Dec-2023 16:59, rhythm is now regular Confirmed by Rodriguez Farrell ([id number]) on 02/25/2025 7:17:57 AM [place]: Rodriguez Farrell Procedure * Event Display: Cardiac Rhythm Strips Authored Date: * Event Display: Cardiac Rhythm Strips Authored Date: * Event Display: Cardiac Rhythm Strips Authored Date: Hospital Progress note * Tye BENJAMIN, Jany: PERFORM Event Display: Progress Note Hospital Authored Date: Patient: ??NICHOLAS BLANCHARD ? Age:??84 Years?Sex:??Female?:??1940?LOC:??[facility]?? Subjective seen and examined at bedside patient reports improvement in her vertigo/dizziness though still ongoing but frequency and intensity have improved no more dizziness back pain is better controlled ? Review of Systems -ve except above Objective Measurements?? Height: 163 cm (02/27/25) Weight: 124.5 kg (02/25/25) Dry Weight: 124.5 kg (02/25/25) Body Mass Index:??46.86 kg/m2??High (02/25/25) ? Vital Signs?? Temperature: 98.3 DegF (02/28/25 08:00:00) Temperature Route: Oral (02/28/25 08:00:00) Pulse Rate:??97 bpm??High (02/28/25 08:00:00) Pulse Rate, Lyin bpm (02/27/25 15:41:00) Systolic Blood Pressure, Lyin mm Hg (02/27/25 15:41:00) Diastolic Blood Pressure, Lyin mm Hg (02/27/25 15:41:00) Pulse Rate, Sittin bpm (02/27/25 15:41:00) Systolic Blood Pressure, Sittin mm Hg (02/27/25 15:41:00) Diastolic Blood Pressure, Sittin mm Hg (02/27/25 15:41:) Pulse Rate, Standin bpm (02/27/25 15:41:00) Systolic Blood Pressure, Standin mm Hg (02/27/25 15:41:00) Diastolic Blood Pressure, Standin mm Hg (02/27/25 15:41:) Pulse Rate, Standing 3 min: 120 bpm (02/27/25 15:41:00) Systolic Blood Pressure, Standing 3 min: 168 mm Hg (02/27/25:41:00) Diastolic Blood Pressure, Standing 3 min: 89 mm Hg (02/27/25 15:41:00) Respiratory Rate: 16 br/min (02/28/25 08:00:00) Systolic Blood Pressure:??141 mm Hg??High (02/28/25 08:00:00) Diastolic Blood Pressure: 79 mm Hg (02/28/25 08:00:00) Blood pressure sites: Arm, right (02/28/25 08:00:00) Pulse Pressure: 62 mm Hg (02/28/25 08:00:00) Oxygen Saturation: 94 % (02/28/25 08:00:00) Mode of Delivery (Oxygen): Room air (02/28/25 08:00:00) Early Warning Score: 2 (02/28/25 08:07:41) ? Intake/Output? 02/24 07:00 02/28 07:00 02/27 07:00 02/26 07:00 02/25 07:00 ?? 02/28 10:24 02/28 10:24 02/28 06:59 02/27 06:59 02/26 06:59 Intake ? 1196 ?120 ?236 ?720 ?120 Output ? 3620 ?0 ? 1150 ? 1920 ?550 Net Total ?-2424 ?120 ? -914 ?-1200 ? -430 ? Urine Count ?1 ?0 ?0 ?1 ?0 ? Physical Exam Constitutional: Alert, in no distress. Mental Status: Oriented to person, place and time. Respiratory: Clear to auscultation. No wheezing, rales or rhonchi.??on RA?? Cardiovascular: S1 S2 regular. No murmurs, rubs or gallops. Gastrointestinal: Abdomen soft, non-tender, non-distended. Normal bowel sounds. Genitourinary: No costovertebral angle tenderness. Neurologic: Cranial nerves II-XII grossly intact. No focal neurological deficits. Moves all extremities spontaneously. Sensation intact bilaterally. Skin: No rashes or lesions. No petechiae or purpura.?? Musculoskeletal: No cyanosis or clubbing. No gross deformities. Normal range of motion. Bilateral??pedal edema with??venous stasis.??Warm??well perfused??extremities. Psychiatric: Normal mood and affect _ Inpatient Medications Medications (16) Active SCHEDULED: (8) Ceftriaxone 1 Gm Inj (Ceftriaxone Inj) ??1 Gm, IVPB, Every 24 hours Citalopram 20 mg Tablet (citalopram 20 mg oral tablet) ??20 mg, By Mouth, Daily Famotidine 20 mg Tablet (famotidine 20 mg oral tablet) ??40 mg, By Mouth, Daily Lidocaine 5% Topical Patch (Lidocaine 5% Patch) ??1 each, Topically, Daily NaCl 0.9% Flush 3ml (NaCL 0.9% Flush) ??3 mL, IV Push, Every 8 hours Remove Patch (Remove Lidocaine Patch) ??5 each, Topically, Daily at bedtime Remove Patch (Remove Lidocaine Patch) ??5 each, Topically, Daily at bedtime Warfarin 2.5 mg Tablet (Warfarin) ??7.5 mg, By Mouth, Every other day CONTINUOUS: (0) PRN: (8) Acetaminophen 325 mg Tablet (Acetaminophen Tablet) ??650 mg, By Mouth, Every 4 hours Dextromethorphan-Guaifenesin 20 mg-200 mg/10 mL Liqu UD (Robitussin DM Liquid) ??10 mL, By Mouth, Every 4 hours Meclizine 12.5 mg Tablet (meclizine 12.5 mg oral tablet) ??12.5 mg, By Mouth, 3 times a day Melatonin 3 mg Tablet (Melatonin Tablet) ??3 mg, By Mouth, Daily at bedtime NaCl 0.9% Flush 3ml (NaCL 0.9% Flush) ??3 mL, IV Push, Every 8 hours Polyethylene Glycol 17 Gm Powder (MiraLax Powder) ??17 Gm 1 pack/packet, By Mouth, Daily Senna Tablet ??8.6 mg 1 tablet, By Mouth, 2 times a day Simethicone 80 mg Chewable Tablet (Simethicone Tablet) ??80 mg, Chew, 3 times a day ? Results Recent Labs COAG INR 1.5 (High)?? 02/28/2025 05:16 Protime (PT) 15.1 seconds (High)?? 02/28/2025 05:16 ?? MISC. CHEMISTRY Hold Green Top SPECIMEN DISCARDED AFTER 1 WEEK ()?? 02/28/2025 05:16 ? Abnormal Labs ?? COAG INR?1.5 (High)?02/28/2025 05:16 Protime (PT)?15.1 seconds (High)?02/28/2025 05:16 ?? HEME OTHER Hold Lavender Top?SPECIMEN DISCARDED AFTER 24 HOURS. ()?02/28/2025 05:16 ?? MISC. CHEMISTRY Hold Green Top?SPECIMEN DISCARDED AFTER 1 WEEK ()?02/28/2025 05:16 ?? Note: Critical results are displayed in red. ? Urinalysis?? No qualifying data available. ? Assessment/Plan Nicholas Blanchard??84F with pertinent medical history of Afib on Coumadin, irritable bowel syndrome,osteoarthritis, overactive bladder, chronic lymphedema and recent left sided humerus fracture presented to ED following a fall at home with acute trauma r/o; admitted for concerns SIRS??with UTI and rule out of posterior circulation stroke. Neurology consulted, and following. ? Assessment:??Fall at home (W19.XXXA), mechanical Dizziness (R42) Head trauma (S09.90XA) Back pain (M54.9) ? Patient had a fall at home; with no LOC and prodromal symptoms. Post- fall no state of confusion; however had 4 episodes of vomiting and dizziness (with position change and eye movements); along with pain and tenderness in lumbar region. CT head/spine ruled out acute trauma/fractures.?? Neurology consulted and following, recommendations followed.?? Stroke has been ruled out?? MRI brain without contrast??negative CT angio head and neck which is non acute?? Continue Warfarin for now; no need for reversal yet, INR wnl?? Likely peripheral vertigo orthostatic negative?? meclizine 12.5 mg tid prn for vertigo?? -PT eval??recommend rehab ?? Urinary tract infection (N39.0) SIRS (systemic inflammatory response syndrome) (R65.10) ? Patient mentions having 3 UTI in last 1-2 years; states she has received antibiotics all the time; last episode was in 12/13 (completed Nitrofurantoin course). SIRS criteria met based on initial vitals. Unable to state symptoms since it overlaps with urinary incontinence UA s/o??3+leukocyte, nitrites, slight bacteria Plan: - urine culture: growing ecoli -Continue Ceftriaxone? -will be discharged on Macrobid?? to complet 5??day course ?? OAB (overactive bladder) (N32.81):??Chronic history of overactive bladder with incontinence; statesshe leaks urine with standing up and wears diapers. On home Tolterodine and Vibegron (non-formulary) ?? Atrial fibrillation (I48.91) DVT (deep venous thrombosis) (I82.409) ? Patient mentions history of??DVT, likely in her hip but unable to tell more.?? She is on Coumadin; with goal INR 2-3.?? INR wnl?? Plan: -Coumadin 7.5 every alternate day; 10mg on Fridays -Discussed with neurology, no reason to discontinue or reverse Coumadin currently -continue to monitor INR? CLOVER (generalized anxiety disorder) (F41.1):??Continue home Citalopram Irritable bowel syndrome (IBS) (K58.9):??Patient states alternate diarrhoea and constipation; had last bowel movement yesterday. ? Quality Measures Code Status: Full Code Diet: Regular DVT prophylaxis: Coumadin (for Afib and?h/o DVT) GI prophylaxis:??Famotidine HCP/Family Update:??Updated Padmaja (HCP) on bedside OA ?? OMN: medically ready/awaiting rehab Electronically Signed on 02/28/25 10:40 AM Tye BENJAMIN, Jany Jose LPN, Mariah: PERFORM, SIGN, VERIFY Event Display: Progress Note Hospital Authored Date: [id number] Patient: NICHOLAS BLANCHARD Age: 84 years Sex: Female : 1940 Associated Diagnoses: None Author: Mariah Jose LPN Findings Problem Related to Alteration in Safety : Alteration in Safety/new 02/27/2025 23:00 EST Alteration in Safety Related to Injury Goals & Outcomes, Safety Psychosocial support will be provided to Pt/S.O. as needed, Pt/caregiver will state understanding of plan/goals of care, Pt will remain safe & injury free, Pt/caregiver will be offered appropriate resources & support, Pt/caregiver will verbalize understanding ofthe D/C plan, Resolved problem, Goals/Outcomes met Interventions, Safety Provide info on community resources for education, support, Provide teaching as needed BH Goals/Interventions, Safety Yes Safety, Problem Start 02/26/2025 21:07 Reviewed plan with, Safety Patient Patient Progression, Safety Pt progressing according to plan . Narrative/Incidental Patient is alert, and oriented x 4. Denied chest pain, SOB, and dizzines. On room air. No respiratory distress noted. Pt requested TUMS. Provider paged, and CLOVER Ortega put order in. Pt also medicated with Tylenol for c/o headache, and Melatonin. MT informed that the pt had 10 consecutive round of PVCs. Pt is stable, and in no distress. Provider jeannie, and CLOVER Ortega came to unit to evaluate strip. No new order placed. Cardiac rhythym is AFIB. Incontinent of bladder, and bowel. Primain place. Call ron within reach of pt. Bed in lowest, and locked position. Safety maintained.. Electronically Signed on 02/28/25 04:57 AM Mariah Jose LPN * Rhonda Ruiz RN: PERFORM, SIGN, VERIFY Event Display: Progress Note Hospital Authored Date: [id number] Patient: NICHOLAS BLANCHARD Age: 84 years Sex: Female : 1940 Associated Diagnoses: None Author: Rhonda Ruiz RN Findings Problem Related to Alteration in Safety : Alteration in Safety/new 02/27/2025 16:00 EST Alteration in Safety Related to Injury Goals & Outcomes, Safety Psychosocial support will be provided to Pt/S.O. as needed, Pt/caregiver will state understanding of plan/goals of care, Pt will remain safe & injury free, Pt/caregiver will be offered appropriate resources & support, Pt/caregiver will verbalize understanding ofthe D/C plan, Resolved problem, Goals/Outcomes met Interventions, Safety Provide info on community resources for education, support, Provide teaching as needed BH Goals/Interventions, Safety Yes Safety, Problem Start 02/26/2025 21:07 Reviewed plan with, Safety Patient Patient Progression, Safety Pt progressing according to plan . Evaluation Patient A&Ox4. Afib on tele. C/o dizziness, meclizine administered. Skin is intact. Clear lung sounds, on room air. Continent of bowel, patient c/o constipation, received PRN bowel meds, had large BM. Incontinent of bladder, primafit in place draining appropriately. Orthos completed, see flowsheets. IV abx administered as ordered. Awaiting safe discharge planning. Patient able to make needs known, call ron within reach. Hourly rounding done. Electronically Signed on 02/27/25 04:22 PM Joseph MEYERS, Rhonda Consult note * Shirley GALO, Galindo Carrizales: PERFORM Event Display: Consultation Note Authored Date: Patient: ??NICHOLAS BLANCHARD ? Age:??84 Years?Sex:??Female?:??1940?LOC:??[facility]?? Chief Complaint/Reason for Consult from home, experienced ??witnessed fall [facility] fall landing on hardwood floor. no hs, no loc, neg thinners, neg defomrities. endorsing midline back pain. states he knees and legs have been weak, had home PT x5 wks no improvement. 1 episode of emesis History of Present Illness Nicholas is an 84 year old female with a significant past medical hx of Afib (Warfarin), DVT, obesity who initially presented to the hospital after a fall, neurology consulted complaints of dizziness. Patient states that she was walking in her kitchen with use of her walker when she felt like her knees gave out , denies tripping. She first started to notice dizziness when EMS stood her up she felt like room was spinning. She mentioned that while she sits still in her bed, she is without any complaints of dizziness, it is only during change of position when it feels like the room is spinning.CT head??nonacute. On exam, patient states that her back is a little sore from sitting in bed, but denies any change in speech, vision or sensation. She denies any complaints of dizziness while laying in bed, demonstrates full strength, NIH 0. Review of Systems back is sore from laying in bed, denies any current complaints of dizziness Physical Exam Vitals & Measurements T:??98.6?F?? HR:??96??(Peripheral)?? RR:??22?? BP:??172/80?? SpO2:??97%?? HT:??163??cm?? WT:??124.5??kg?? BMI:??46.86?? Neuro Exam ?? Mental Status: ?alert and oriented to person, place, month, and year ?fluent and appropriate speech, no dysarthria ?able to identify simple objects ?able to follow simple and 2 step commands Cranial nerves:?PERRL ?EOMI ?VFF ?equal light touch sensation ?no facial asymmetry or droop no ptosis noted bilaterally muscle strength: ?appropriate muscle tone and bulk ?no tremors ?5/5 UE ?5/5 LE Sensation ?equal light touch sensation UE and LE Cerebellum ?Finger to nose intact bilaterally?Gait not assessed ?? Assessment/Plan Nicholas is an 84 year old female with a significant past medical hx of Afib (Warfarin), DVT, obesity who initially presented to the hospital after a fall, neurology consulted complaints of dizziness. Patient states that she was walking in her kitchen with use of her walker when she felt like her knees gave out , denies tripping. She first started to notice dizziness when EMS stood her up she felt like room was spinning. She mentioned that while she sits still in her bed, she is without any complaints of dizziness, it is only during change of position when it feels like the room is spinning.CT head??nonacute. On exam, patient states that her back is a little sore from sitting in bed, but denies any change in speech, vision or sensation. She denies any complaints of dizziness while laying in bed, demonstrates full strength, NIH 0. ?? DDX: dizziness described as room spinning without cerebellar findings, only present during change of position. Unlikely stroke, will rule out posterior circ infarct ?? Recommendations: - obtain CTA head/neck - obtain MRI brain without contrast - continue home Warfarin - Q4hr neuro checks - STAT head CT for acute worsening in neuro status - normotension BP goals - tele - consider checking orthostatic vitals ?? Neurology will continue to follow Discussed w/ Dr. Garvin and Dr. Colvin Problem List/Past Medical History Ongoing Anxiety Atrial fibrillation with RVR Chronic diarrhea GERD (gastroesophageal reflux disease) IBS (irritable bowel syndrome) Lymphedema Oral thrush Severe obesity Transaminitis Varicose vein Venous insufficiency NOS Procedure/Surgical History Liver cyst Home Medications Calcium And Vitamin D Combination: By Mouth, 2 times a day Calcium Carbonate: 500 mg, Daily Cholecalciferol: 1,000 International_Units, By Mouth, Daily Citalopram: 20 mg = 1 tablet, By Mouth, Daily Diclofenac Topical: 1 patch, Topically, 2 times a day, PRN (for pain) Famotidine: 40 mg = 1 tablet, By Mouth, Daily Multivitamin With Minerals: 1 tablet, By Mouth, Daily tirzepatide: 7.5 mg, Subcutaneous Injection, Every week, Tuesday rotate injection sites Tolterodine: 4 mg = 1 capsule, By Mouth, Daily vibegron: 75 mg = 1 tablet, By Mouth, Daily Warfarin: 7.5 mg, By Mouth, Daily at supper Allergies Glutens??GI Distress Lactose??GI Distress Social History Alcohol Use:Never Employment/School Status:Retired Exercise Self assessment:Poor condition Regular exercise:No Home/Environment Living situation:Home/Independent Lives with:Spouse Nutrition/Health Diet: (Don't list allergies here)Gluten free, lactose free Substance Abuse Use:Never Tobacco Use:Never smoker Tobacco user in household:No Family History Mother (): Cancer of breast; Hysterectomy Father (): Bladder cancer; Pancreatic cancer Sister: Cancer of breast; Hysterectomy Electronically Signed on 02/24/25 03:46 PM Shirley GALO, Galindo Carrizales Electronically Signed on 02/24/25 03:48 PM Quinn Garvin MD Note * Louise Cobb RN: PERFORM Event Display: Discharge/Transfer Note Hospital Authored Date: Nursing Discharge Note Entered On: 03/01/2025 10:42 EST Performed On: 03/01/2025 10:42 EST by Louise Cobb RN Nursing Discharge Note 2 Discharge Level of Care at Discharge : residential facility Discharge Time : 03/01/2025 10:42 EST Discharge Nursing Homes/Rehab Facilities : [facility] [employer] Utilized : No Patient Left Unit Via : Ambulance Patient Accompanied Off Unit with : Ambulance/Chair Van Personnel Handover Given to Transport Personnel : Yes DC Instructions Provided & Signed by Pt : Yes Patient Understands D/C Instructions : Yes Patient Instructions Discharge Signed : Yes Did Pt have Specialty Bed or Wound Vac : No Louise Cobb RN - 03/01/2025 10:42 EST Electronically Signed on 03/01/25 10:42 AM Louise Cobb RN * Jany Gamble MD: PERFORM, MODIFY Event Display: Discharge/Transfer Note Hospital Authored Date: Patient: ??NICHOLAS BLANCHARD ? Age:??84 Years?Sex:??Female?:??1940?LOC:??[facility]?? Patient Information Discharge Location: S15 Primary Care Physician: Lakritz MD, Abimael S Admit Date/Time: 02/24/2025 07:00 Discharge Disposition Discharge Disposition: Custodial Facility/Rehab Discharge Diagnosis Fall ([id number]) Back pain (M54.9) Fall at home (W19.XXXA) Head trauma (S09.90XA) Dizziness (R42) Urinary tract infection (N39.0) DVT (deep venous thrombosis) (I82.409) Atrial fibrillation (I48.91) SIRS (systemic inflammatory response syndrome) (R65.10) CLOVER (generalized anxiety disorder) (F41.1) OAB (overactive bladder) (N32.81) Irritable bowel syndrome (IBS) (K58.9) _ Discharge Medications Calcium And Vitamin D Combination (Caltrate 600 with D)??By Mouth 2 times a day Calcium Carbonate (Tums 500)??500 Milligram Daily Cholecalciferol (Vitamin D3)??1,000 International Unit By Mouth Daily Citalopram (citalopram 20 mg oral tablet)??20 Milligram 1 tablet By Mouth Daily Diclofenac Topical (diclofenac 1.3% topical film, extended release)??1 patch(es) Topically 2 times a day as needed for pain Famotidine (famotidine 40 mg oral tablet)??1 tab(s) 40 Milligram By Mouth Daily Meclizine (meclizine 12.5 mg oral tablet)??12.5 Milligram By Mouth 3 times a day as needed Other vertigo Multivitamin With Minerals (Alive Womens 50+ Multivitamin Gummy oral tablet, chewable)??1 tab(s) ByMouth Daily Nitrofurantoin (Macrobid macrocrystals-monohydrate 100 mg oral capsule)??1 capsule 100 Milligram ByMouth 2 times a day for 1 Days tirzepatide (Zepbound Pen 7.5 mg/0.5 mL subcutaneous solution)??7.5 Milligram Subcutaneous Injection Every week Tuesday rotate injection sites Tolterodine (tolterodine 4 mg oral capsule, extended release)??1 capsule 4 Milligram By Mouth Daily vibegron (Gemtesa 75 mg oral tablet)??1 tab(s) 75 Milligram By Mouth Daily Warfarin (warfarin 7.5 mg oral tablet)??7.5 Milligram By Mouth Daily at supper ? Discharge Medications New Meclizine (meclizine 12.5 mg oral tablet)12.5 Milligram Oral 3 times a day as needed Other. vertigo. Nitrofurantoin (Macrobid macrocrystals-monohydrate 100 mg oral capsule)1 capsule Oral twice a day for 1 Days. Refills: 0. Unchanged Calcium And Vitamin D Combination (Caltrate 600 with D)Oral twice a day. Calcium Carbonate (Tums 500)500 Milligram Daily. Cholecalciferol (Vitamin D3)1,000 International Unit Oral Daily. Citalopram (citalopram 20 mg oral tablet)1 tab(s) Oral Daily. Diclofenac Topical (diclofenac 1.3% topical film, extended release)1 patch(es) Topically twice a day as needed for pain. Famotidine (famotidine 40 mg oral tablet)1 tab(s) Oral Daily. Multivitamin With Minerals (Alive Womens 50+ Multivitamin Gummy oral tablet, chewable)1 tab(s) OralDaily. tirzepatide (Zepbound Pen 7.5 mg/0.5 mL subcutaneous solution)7.5 Milligram Subcutaneous Injection every week. Tuesday rotate injection sites. Tolterodine (tolterodine 4 mg oral capsule, extended release)1 capsule Oral Daily. vibegron (Gemtesa 75 mg oral tablet)1 tab(s) Oral Daily. Warfarin (warfarin 7.5 mg oral tablet)7.5 Milligram Oral Daily at supper. Hospital Course ??Nicholas Blanchard is a 84F with pertinent medical history of Afib on Coumadin, irritable bowel syndrome,osteoarthritis, overactive bladder, chronic lymphedema and left sided humerus fracture presented to ED following a fall at home. ?? Per patient, she was walking to her kitchen and felt like her knees gave away; states she feels shefelt backwards and unclear if she hit her head. No prodromal symptoms of dizziness/lightheadedness/nausea/vomiting before the fall. No LOC. Her called the EMS, who helped to sit her up, however she felt dizzy and vomited 4 times. No headache/confusion. She states she has had 3-4 episodes of fall in the past, however none were similar to this episode.?? Post fall, she complains of ongoing back pain, located to region of lumbar spine; associated withmarked tenderness. No skin bruising. She mentions she has urinary incontinence and recently received botox injection which helped with her symptoms intermittently, but noticed increased frequency lately. No dysuria/burning micturition/suprapubic tenderness. ?? She was admitted for dizziness to rule out a stroke.?? Underwent MRI brain negative for ?? Stroke, seen by neurology as well.?? Per neurology since her symptoms are positional it is likely secondary to BPPV and patient would need outpatient vestibular therapy.?? Her orthostatic vitals werenegative warfarin reversal was also discussed with neurology given head strike and was not recommended.?? He she worked with the PT and recommends rehab.?? Patient dizziness still ongoing but reportsimprovement in her dizziness.?? She was also started on meclizine as needed for vertigo.?? Given improvement in her symptoms patient will be discharged to rehab and patient would need outpatient vestibular therapy.?? Can try meclizine as needed for vertigo I have educated patient of not to operate a [place] heavy machinery if she has ongoing dizziness or drive car patient understands that. ? In regards to UTI patient grew E. coli, which was sensitive to ceftriaxone will be discharged on Macrobid to complete 5-day course. ?? Objective Assessment and Plan Assessment:??Fall at home (W19.XXXA), mechanical Dizziness (R42) Head trauma (S09.90XA) Back pain (M54.9) ? Patient had a fall at home; with no LOC and prodromal symptoms. Post- fall no state of confusion; however had 4 episodes of vomiting and dizziness (with position change and eye movements); along with pain and tenderness in lumbar region. CT head/spine ruled out acute trauma/fractures.?? Neurology consulted and following, recommendations followed.?? Stroke has been ruled out?? MRI brain without contrast??negative CT angio head and neck which is non acute?? Continue Warfarin for now; no need for reversal yet, INR wnl?? Likely peripheral vertigo orthostatic negative?? meclizine 12.5 mg tid prn for vertigo?? -PT eval??recommend rehab ?? Urinary tract infection (N39.0) SIRS (systemic inflammatory response syndrome) (R65.10) ? Patient mentions having 3 UTI in last 1-2 years; states she has received antibiotics all the time; last episode was in 12/13 (completed Nitrofurantoin course). SIRS criteria met based on initial vitals. Unable to state symptoms since it overlaps with urinary incontinence UA s/o??3+leukocyte, nitrites, slight bacteria Plan: - urine culture: growing ecoli -Continue Ceftriaxone? -will be discharged on Macrobid? OAB (overactive bladder) (N32.81):??Chronic history of overactive bladder with incontinence; statesshe leaks urine with standing up and wears diapers. On home Tolterodine and Vibegron (non-formulary) ?? Atrial fibrillation (I48.91) DVT (deep venous thrombosis) (I82.409) ? Patient mentions history of??DVT, likely in her hip but unable to tell more.?? She is on Coumadin; with goal INR 2-3.?? INR wnl?? Plan: -Coumadin 7.5 every alternate day; 10mg on Fridays -Discussed with neurology, no reason to discontinue or reverse Coumadin currently -continue to monitor INR? CLOVER (generalized anxiety disorder) (F41.1):??Continue home Citalopram Irritable bowel syndrome (IBS) (K58.9):??Patient states alternate diarrhoea and constipation; had last bowel movement yesterday. ? Vital Signs?? Temperature: 98 DegF (03/01/25 04:23:00) Temperature Route: Oral (03/01/25 04:23:00) Pulse Rate: 83 bpm (03/01/25 08:00:00) Respiratory Rate: 18 br/min (03/01/25 08:00:00) Systolic Blood Pressure:??140 mm Hg??High (03/01/25 08:00:00) Diastolic Blood Pressure: 77 mm Hg (03/01/25 08:00:00) Blood pressure sites: Arm, right (03/01/25 08:00:00) Mean Arterial Pressure: 101 mm Hg (03/01/25 04:23:00) Pulse Pressure: 63 mm Hg (03/01/25 08:00:00) Oxygen Saturation:??92 %??Low (03/01/25 08:00:00) Mode of Delivery (Oxygen): Room air (03/01/25 08:00:00) Early Warning Score: 2 (03/01/25 08:25:20) ? . Physical Exam Constitutional: Alert, in no distress. Mental Status: Oriented to person, place and time. Respiratory: Clear to auscultation. No wheezing, rales or rhonchi.??on RA?? Cardiovascular: S1 S2 regular. No murmurs, rubs or gallops. Gastrointestinal: Abdomen soft, non-tender, non-distended. Normal bowel sounds. Genitourinary: No costovertebral angle tenderness. Neurologic: Cranial nerves II-XII grossly intact. No focal neurological deficits. Moves all extremities spontaneously. Sensation intact bilaterally. Skin: No rashes or lesions. No petechiae or purpura.?? Musculoskeletal: No cyanosis or clubbing. No gross deformities. Normal range of motion. Bilateral??pedal edema with??venous stasis.??Warm??well perfused??extremities. Psychiatric: Normal mood and affect Consultants Neurology Patient Education Titles WebMD Ignite Patient Education - Benign Paroxysmal Positional Vertigo?? Follow-Up Appointments Added Follow Up ?Time Frame ?Comments Jhonathan BENJAMIN, Abimael Jones Patient Instructions You will go home with the following NEW medications: ?? Macrobid 100 mg bid for one more day to complete 5 day course of antibiotics Meclizine 12.5 mg 3 times a day prn for vertigo ?I??have not made any changes to your home medications, please continue to take as you usally??take? Activity changes: -?As tolerated. ? Who to follow up with after being discharged from the hospital: -??Please follow up at your primary??care doctor's office in 1-2 weeks. Please make appointment with the clinic. - Please follow up with?? outpatient vestibular tehrapist as outpatient. Please call office to schedule appointment. ? - You have any other concerns that you think require emergency management. Post Discharge Care Diet: ??Regular Diet ?? Discharge ?03/01/25 9:11:00 EST ?Order Comment:?? Results Discharge Labs BACTERIOLOGY Urine Culture Results Note (Abnormal)?? 02/24/2025 02:05 Urine Culture Specimen Source URINE ()?? 02/24/2025 02:05 ?? BLOOD COUNT & DIFF WBC 8.1 k/mm3 ()?? 02/25/2025 06:48 RBC 4.60 m/mm3 ()?? 02/25/2025 06:48 Hgb 12.1 Gm/dL ()?? 02/25/2025 06:48 Hct 38.8 % ()?? 02/25/2025 06:48 MCV 84.3 femtoliters ()?? 02/25/2025 06:48 MCH 26.3 pg (Low)?? 02/25/2025 06:48 MCHC 31.2 Gm/dL (Low)?? 02/25/2025 06:48 Platelet Count 189 k/mm3 ()?? 02/25/2025 06:48 RDW-SD 53.6 femtoliters (High)?? 02/25/2025 06:48 MPV 9.9 femtoliters ()?? 02/25/2025 06:48 Nucleated RBC (Automated) 0.0 #/100 WBC'S ()?? 02/25/2025 06:48 Abs. NRBC 0.0 k/mm3 ()?? 02/25/2025 06:48 Abs. Neut 7.0 k/mm3 ()?? 02/24/2025 15:23 Abs. Lymph 1.1 k/mm3 ()?? 02/24/2025 15:23 Abs. Blount 0.7 k/mm3 ()?? 02/24/2025 15:23 Abs. Eo 0.1 k/mm3 ()?? 02/24/2025 15:23 Abs. Baso 0.0 k/mm3 ()?? 02/24/2025 15:23 Neut % 78.4 % (High)?? 02/24/2025 15:23 Lymph % 11.8 % (Low)?? 02/24/2025 15:23 Blount % 7.9 % ()?? 02/24/2025 15:23 Eos % 1.3 % ()?? 02/24/2025 15:23 Baso % 0.2 % ()?? 02/24/2025 15:23 Imm Gran 0.4 % ()?? 02/24/2025 15:23 Abs. Imm Gran 0.0 k/mm3 ()?? 02/24/2025 15:23 ?? CHEM GENERAL Sodium 136 mmol/L ()?? 02/25/2025 06:48 Potassium 3.9 mmol/L ()?? 02/25/2025 06:48 Chloride 103 mmol/L ()?? 02/25/2025 06:48 Bicarbonate Level 26 mmol/L ()?? 02/25/2025 06:48 Anion Gap 7 mmol/L ()?? 02/25/2025 06:48 Glucose Level 106 mg/dL (High)?? 02/25/2025 06:48 Glucose, POC 121 mg/dL (High)?? 02/24/2025 00:33 BUN 13 mg/dL ()?? 02/25/2025 06:48 Creatinine-Blood 0.80 mg/dL ()?? 02/25/2025 06:48 Estimated GFR Creatinine 74 ML/MIN/1.73 M2 ()?? 02/25/2025 06:48 Calcium 8.7 mg/dL ()?? 02/25/2025 06:48 Lactate 1.7 mmol/L ()?? 02/24/2025 15:23 ?? COAG INR 1.5 (High)?? 02/28/2025 05:16 Protime (PT) 15.1 seconds (High)?? 02/28/2025 05:16 APTT 35.9 seconds (High)?? 02/24/2025 01:28 ? HEME OTHER Hold Lavender Top SPECIMEN DISCARDED AFTER 24 HOURS. ()?? 02/28/2025 05:16 ? MISC. CHEMISTRY Hold Green Top SPECIMEN DISCARDED AFTER 1 WEEK ()?? 02/28/2025 05:16 ? UA/URINALYSIS Appear/Color, Urine LIGHT YELLOW ()?? 02/24/2025 02:05 Specific [place], Urine 1.021 ()?? 02/24/2025 02:05 pH, Urine 6.5 ()?? 02/24/2025 02:05 Albumin, Urine TRACE (Abnormal)?? 02/24/2025 02:05 Glucose, Urine NEGATIVE ()?? 02/24/2025 02:05 Ketones, Urine NEGATIVE ()?? 02/24/2025 02:05 Bilirubin, Urine NEGATIVE ()?? 02/24/2025 02:05 Hemoglobin, Urine TRACE (Abnormal)?? 02/24/2025 02:05 Nitrite, Urine POSITIVE (Abnormal)?? 02/24/2025 02:05 Leukocyte, Urine 3+ (Abnormal)?? 02/24/2025 02:05 Urobilinogen NORMAL mg/dL ()?? 02/24/2025 02:05 WBC's, Urine 44 /HPF (High)?? 02/24/2025 02:05 RBC's, Urine 7 /HPF (High)?? 02/24/2025 02:05 Bacteria SLIGHT HPF (Abnormal)?? 02/24/2025 02:05 Squamous Epith <1 /HPF () 02/24/2025 02:05 Mucus SLIGHT /LPF ()?? 02/24/2025 02:05 Hold Urine Culture Testing available 48 hours from time of collection. ()?? 02/24/2025 02:05 ? URINE OTHER Est Creatinine Clearance 47.16 mL/min ()?? 02/25/2025 07:34 ? 36_ minutes spent on discharge Electronically Signed on 03/01/25 09:14 AM Tye BENJAMIN, Jany Cobb RN, Louise: PERFORM Event Display: Patient Education/Instruction Authored Date: [id number] Inpatient Adult Discharge Instructions. [address] [id number] Name: NICHOLAS BLANCHARD : 1940?? Visit: 02/24/2025 07:00?? Current Date: 03/01/2025 09:25 ?? Account: [id number]?? Inpatient Adult Discharge Instructions We would like to thank you for allowing us to assist you with your healthcare needs. The following includes patient education materials and information regarding your injury/illness. Our entire staffstrives to provide an excellent experience for our patients and their families. PLEASE ENSURE YOU FOLLOW-UP PER THE INSTRUCTIONS BELOW! ?? YOUR OPINION IS IMPORTANT TO US! Please complete the survey you may receive by mail or email. Your feedback will be used to make improvements to the healthcare experiences of our patients and their families. Surveys are administered by [employer]. ?? If further treatment with your primary care physician or another doctor is recommended, it is important for you to keep the appointment. Call your primary care physician or return to the Emergency Department immediately if your condition worsens, fails to improve, or new symptoms develop. If you need to find a doctor, you can call [facility] for a referral at [phone] or toll free at [phone] or log in to [email or web address] ?? [facility], in keeping with [facility] guidance, no longer requires face masks for staff, patientsor visitors in most situations. Similiar to time spent indoors at other locations, there is the chance that you were exposed to repiratory viruses during your time with us (such as flu or COVID-19). If you develop symptoms concerning for a viral respiratory infection, please seek testing (and treatment if indicated) from your medical provider or home test kit. ?? You can view and manage your care through the patient portal or by using a health care ana of your choosing. [email or web address] is a website that allows you to securely view your medical information including your hospital discharge summary, office visit summaries, medications and follow-up visits. You can also request appointments, renew medications, and request access to your medical information using a health care ana of your choosing, or just ask a question. You are entitled to know the individuals who participated in your treatment. This information is available within your medical record and will be provided upon your request. You can enroll at [email or web address] or register d uring your next office visit. You have been discharged from [facility], Patient Care Unit: S15??. If you have any questions regarding these instructions, including results of studies pending, afteryou leave, please call us and we will be happy to assist you 11/10. [facility] Your Care Team Attending Physician Jany Gamble MD?? Consulting Providers Jany Gamble MD?? Discharging Providers Jany Gamble MD Reason for Your Visit from home, experienced ??witnessed fall mech fall landing on hardwood floor. no hs, no loc, neg thinners, neg defomrities. endorsing midline back pain. states he knees and legs have been weak, had home PT x5 wks no improvement. 1 episode of emesis?? Your Diagnosis Atrial fibrillation Dizziness DVT (deep venous thrombosis) Fall Fall at home CLOVER (generalized anxiety disorder) Head trauma Irritable bowel syndrome (IBS) OAB (overactive bladder) SIRS (systemic inflammatory response syndrome) Urinary tract infection Tests Performed Below is a partial list of the tests performed during your hospitalization. You may have had other tests and procedures not included in this list. Please discuss all test results with your provider. APTT Basic Metabolic Panel CBC CBC w/ Differential GLUCOSE POC HOLD GREEN TUBE HOLD LAVENDER TUBE INR Lactate Level Urinalysis w/hold for Urine Culture Urine Culture, Routine CT Angio Chest CT Angio Head CT Angio Neck CT Cervical Spine W/O Contrast CT Head/Brain W/O Contrast Lumbar Spine CT W/O Contrast MRI Brain W/O Contrast Thoracic Spine CT W/O Contrast Add On Lab Order (Lab Add On Order)?? Basic Metabolic Panel?? CBC?? CBC w/ Differential?? CT Angio Chest?? CT Angio Head?? CT Angio Neck?? CT Cervical Spine W/O Contrast?? CT Head/Brain W/O Contrast?? CT Lumbar Spine W/O Contrast (Lumbar Spine CT W/O Contrast)?? CT Thoracic Spine W/O Contrast (Thoracic Spine CT W/O Contrast)?? Glucose POC?? Hold Green Top Tube (HOLD GREEN TUBE)?? Hold Lavender Top Tube (HOLD LAVENDER TUBE)?? INR?? Lactic Acid Level (Lactate Level)?? MRI Brain W/O Contrast?? PTT (APTT)?? Urinalysis w/hold for Urine Culture?? Urine Culture (Urine Culture, Routine)?? Primary Care Provider Abimael Ring MD? Advance Directive Health Care Proxy on File Yes - Health Care Proxy Yes - MOLST Discharge Vitals Temperature: 97.7 DegF Height: 163 cm Pulse Rate: 86 bpm Weight: 124.5 kg Respiratory Rate: 20 br/min Body Mass Index:??46.86 kg/m2??High Systolic Blood Pressure:??155 mm Hg??High Body surface area: 2.37 Diastolic Blood Pressure: 76 mm Hg ?? Oxygen Saturation: 95 % ?? Studies Pending All studies ordered during this hospital stay have been completed unless listed below. Please discuss all pending results with your provider listed above in these instructions. ?? Add On Lab Order (Lab Add On Order)?? What to do next Instructions From Your Doctor You will go home with the following NEW medications: ?? Macrobid 100 mg bid for one more day to complete 5 day course of antibiotics Meclizine 12.5 mg 3 times a day prn for vertigo ?I??have not made any changes to your home medications, please continue to take as you usally??take? Activity changes: -?As tolerated. ? Who to follow up with after being discharged from the hospital: -??Please follow up at your primary??care doctor's office in 1-2 weeks. Please make appointment with the clinic. - Please follow up with?? outpatient vestibular tehrapist as outpatient. Please call office to schedule appointment. ? - You have any other concerns that you think require emergency management. ?? Orders??:Regular Diet? 03/01/25 9:11:00 EST?? You Need to Schedule the Following Appointments Follow Up with??Abimael Ring MD ?? Where: Discharge Medications NICHOLAS BLANCHARD :1940 Visit Date:02/24/2025 Medications: Please continue your medications until treatment is completed or stopped by your provider. Medications not listed below should be discontinued. Discuss any questions related to medications with your provider. What How Much When Instructions Next Dose New Meclizine (meclizine 12.5 mg oral tablet) 12.5 Milligram Oral 3 times a day as needed for Other Special Instructions: vertigo Ordering Physician: Jany Gamble MD ?? as needed New Nitrofurantoin (Macrobid macrocrystals-monohydrate 100 mg oral capsule) 1 capsule Oral Twice a day Duration: 1 Days Ordering Physician: Jany Gamble MD 03/02 AM Unchanged Calcium And Vitamin D Combination (Caltrate 600 with D) Oral Twice a day 03/01 PM Unchanged Calcium Carbonate (Tums 500) 500 Milligram Daily 03/02 AM Unchanged Cholecalciferol (Vitamin D3) 1,000 International Unit Oral Daily 03/02 AM Unchanged Citalopram (citalopram 20 mg oral tablet) 1 tab(s) Oral Daily 03/02 AM Unchanged Diclofenac Topical (diclofenac 1.3% topical film, extended release) 1 patch(es) Topically Twice a day as needed for for pain as needed Unchanged Famotidine (famotidine 40 mg oral tablet) 1 tab(s) Oral Daily 03/02 AM Unchanged Multivitamin With Minerals (Alive Womens 50+ Multivitamin Gummy oral tablet, chewable) 1 tab(s) Oral Daily 03/02 AM Unchanged tirzepatide (Zepbound Pen 7.5 mg/ 0.5 mL subcutaneous solution) 7.5 Milligram Subcutaneous Injection Every week Special Instructions: Tuesday rotate injection sites ?? Every Tuesday Unchanged Tolterodine (tolterodine 4 mg oral capsule, extended release) 1 capsule Oral Daily 03/02 AM Unchanged vibegron (Gemtesa 75 mg oral tablet) 1 tab(s) Oral Daily 03/02 AM Unchanged Warfarin (warfarin 7.5 mg oral tablet) 7.5 Milligram Oral Daily at supper Ordering Physician: Dennis BENJAMIN, Anil 03/01 at supper Prescription Given During Visit Nitrofurantoin (Macrobid macrocrystals-monohydrate 100 mg oral capsule) - 1 capsule = 100 mg, By Mouth, 2 times a day, # 2 capsule, 0 Refills?? Laboratory Results Below is a partial list of the most recent Laboratory test results done prior to this discharge. You may have had other tests and procedures not included in this list. Please discuss all test resultswith your provider. Est Creatinine Clearance - 47.16 mL/min (02/25/2025) APTT (02/24/2025) ???APTT - 35.9 seconds Basic Metabolic Panel (02/25/2025) ???Sodium - 136 mmol/L???Potassium - 3.9 mmol/L???Chloride - 103 mmol/L???Bicarbonate Level - 26 mmol/L???Anion Gap - 7 mmol/L???Glucose Level - 106 mg/dL???BUN - 13 mg/dL???Creatinine-Blood - 0.80 mg/dL???Estimated GFR Creatinine - 74 ML/MIN/1.73 M2???Calcium - 8.7 mg/dL CBC (02/25/2025) ???WBC - 8.1 k/mm3???RBC - 4.60 m/mm3???Hgb - 12.1 Gm/dL???Hct - 38.8 %???MCV - 84.3 femtoliters???MCH - 26.3 pg???MCHC - 31.2 Gm/dL???Platelet Count - 189 k/mm3???RDW-SD - 53.6 femtoliters???MPV - 9.9 femtoliters???Nucleated RBC (Automated) - 0.0 #/100 WBC'S???Abs. NRBC - 0.0 k/mm3 CBC w/ Differential (02/24/2025) ???WBC - 9.0 k/mm3???RBC - 4.64 m/mm3???Hgb - 12.5 Gm/dL???Hct - 39.2 %???MCV - 84.5 femtoliters???MCH - 26.9 pg???MCHC - 31.9 Gm/dL???Platelet Count - 177 k/mm3???RDW-SD - 54.0 femtoliters???MPV - 9.5 femtoliters???Nucleated RBC (Automated) - 0.0 #/100 WBC'S???Abs. NRBC - 0.0 k/mm3???Abs. Neut - 7.0 k/mm3???Abs. Lymph - 1.1 k/mm3???Abs. Blount - 0.7 k/mm3???Abs. Eo - 0.1 k/mm3???Abs. Baso - 0.0 k/mm3???Neut % - 78.4 %???Lymph % - 11.8 %???Blount % - 7.9 %???Eos % - 1.3 %???Baso % - 0.2 %???Imm Gran - 0.4 %???Abs. Imm Gran - 0.0 k/mm3 GLUCOSE POC (02/24/2025) ???Glucose, POC - 121 mg/dL HOLD GREEN TUBE (02/28/2025) ???Hold Green Top - SPECIMEN DISCARDED AFTER 1 WEEK HOLD LAVENDER TUBE (02/28/2025) ???Hold Lavender Top - SPECIMEN DISCARDED AFTER 24 HOURS. INR (02/28/2025) ???INR - 1.5???Protime (PT) - 15.1 seconds Lactate Level (02/24/2025) ???Lactate - 1.7 mmol/L Urinalysis w/hold for Urine Culture (02/24/2025) ???Appear/Color, Urine - LIGHT YELLOW???Specific [place], Urine - 1.021???pH, Urine - 6.5???Albumin, Urine - TRACE???Glucose, Urine - NEGATIVE???Ketones, Urine - NEGATIVE???Bilirubin, Urine - NEGATIVE???Hemoglobin, Urine - TRACE???Nitrite, Urine - POSITIVE???Leukocyte, Urine - 3+???Urobilinogen - NO RMAL WBC's, Urine - 44 /HPF RBC's, Urine - 7 /HPF Bacteria - SLIGHT Squamous Epith - <1 /HPF???Mucus - SLIGHT???Hold Urine Culture - Testing available 48 hours from time of collection. Urine Culture, Routine (02/24/2025) ???Urine Culture Results - Note???Urine Culture Specimen Source - URINE Allergies (NKA means No Known Allergies) Glutens??GI Distress Lactose??GI Distress Problems Active Problems??(11) Anxiety?? Atrial fibrillation with RVR?? Chronic diarrhea?? GERD (gastroesophageal reflux disease)?? IBS (irritable bowel syndrome)?? Lymphedema?? Oral thrush?? Severe obesity?? Transaminitis?? Varicose vein?? Venous insufficiency NOS?? Education Materials Below is the list of Educational Leaflet Providered with your Discharge Instructions. WebMD Ignite Patient Education - Benign Paroxysmal Positional Vertigo?? Valuables and Belongings I fully understand and agree that [facility] accepts no responsibility for all my personal property including clothing, toilet articles, radios, jewelry, dentures, hearing aids, rings, money, or any other property that is in my possession or is brought to me after admission. I understand certain valuables may be placed in a hospital safe for a short period of time. I understand that the hospital is not liable for loss or damage due to accident, fire, or other natural occurrence while said property is in the safe. I accept full responsibility for any personal property that I keep with me, and will not hold the hospital responsible in case of loss or disappearance. I acknowledge that i have been encouraged to send valuables and belongings home. ?? Review of Valuable and Belonging List: With patient Date for Pt to Sign Valuables/Belongings: 03/01/25 08:57:00 ?? Other Discharge Information ? Case Management Discharge Plan?? Discharge Plan?? Discharge Agency Information?? Discharge Level of Care at Discharge: residential facility [facility] Discharge Transportation Arranged: [facility] [address] [facility] [id number] [phone] Service Categories #1: Occupational Therapy, Physical Therapy, Custodial Mode of Transportation Arranged: Ambulance ?? Discharge Arranged Transport Date/Time: 03/01/25 11:00:00 ?? Discharge Nursing Homes/Rehab Facilities: [facility] ? Pulmonary Rehab Status?? Pulmonary Rehab Discharge Status?? Respiratory Rate: 20 br/min ? Common Emergency Awareness Tips IS IT A STROKE? Act FAST and Check for these signs: FACE Does the face look uneven? ARM Does one arm drift down? SPEECH Does their speech sound strange? TIME Call at any sign of stroke ?? Heart Attack Signs Chest discomfort: Most heart attacks involve discomfort in the center of the chest and lasts more than a few minutes, or goes away and comes back. It can feel like uncomfortable pressure, squeezing, fullness or pain. Discomfort in upper body: Symptoms can include pain or discomfort in one or both arms, back, neck, jaw or stomach. Shortness of breath: With or without discomfort. Other signs: Breaking out in a cold sweat, nausea, or lightheaded. Remember, MINUTES DO MATTER. If you experience any of these heart attack warning signs, call to get immediate medical attention! ?? Smoking can increase your chances of developing chronic health problems and can cause harmful effects to other family members in your house. If you smoke, you are strongly encouraged to quit. Please call [facility] [employer] Link at [phone] or [phone] (9786) or log in to [email or web address] for referrals to smoking cessation programs. ?? 937 Suicide & Crisis Lifeline is available 11/10 if you or someone you know needs to find a reason to keep living. By calling 168 you'll be connected to a skilled, trained counselor at a crisis center in your area. INPATIENT DISCHARGE INSTRUCTIONS SIGNATURE PAGE MAUYRAMITANICHOLAS Location:[facility] Registration Date and Time:02/24/2025 07:00 [facility] Primary Care Physician: Jhonathan BENJAMIN, Abimael Jones, Attending Physician: Tye BENJAMIN, [facility], I NICHOLAS BLANCHARD, have received the above patient education materials/instructions and have verbalized understanding. If ambulance or transport services are being used I further acknowledge being given a choice of service. ?? If you need to contact me, please call me at this number: . Patient/Furniture Lumber Production Worker Name: Patient/Furniture Lumber Production Worker Signature: Relationship to Patient: Witness Name/Signature: Date: * Jany Gamble MD: PERFORM Event Display: Patient Education Leaflets Authored Date: Benign Paroxysmal Positional Vertigo ?? [id number] Benign Paroxysmal Positional Vertigo Benign paroxysmal positional vertigo (BPPV) is a common condition. You feel as if the room is spinning after changing position, moving your head quickly, or even just rolling over in bed. Vertigo is a false feeling of motion plus disorientation that makes it seem as if the room is spinning. A vertigo attack may cause sudden nausea, vomiting, and heavy sweating. Severe vertigo causes aloss of balance. You may even fall down. Vertigo is caused by a problem with the inner ear. The inner ear is located behind the middle ear. It is a part of the balance center of the body. Vertigo can happen when small calcium stones move into an area of your inner ear called the semicircular canal. This may happen as a result of aging, head injury, or disease of the inner ear. Once that happens, moving your head in certain ways may cause the particles to stimulate the inner ear. This creates the feeling of vertigo. An episode of vertigo lasts only a few seconds to minutes. Once you are over the first episode of vertigo, it may never return. Sometimes symptoms return off and on for several weeks or longer. BPPV is treatable. The Bryant maneuver is a simple treatment for the common cause of vertigo. Your doctor may try to put the calcium particles back in their correct position by having you do a series of head movements. Your doctor may have you do other types of maneuvers, depending on which canals the crystals are in. Home care Follow these guidelines when caring for yourself at home: ??? Rest quietly in bed if your symptoms are severe. Change position slowly. There is usually one position that will feel best. This might belying on one side or lying on your back with your head slightly raised on pillows. Until you have no symptoms, you are at a higher risk of falling. Let someone help you when you get up. Get rid of home hazards such as loose electrical cords and throw rugs. Don???t walk in unfamiliar areas that aren't lighted. Use night-lights in bathrooms and kitchen areas. ??? Don't drive or work with dangerous machinery for 1 week after symptoms go away, or as directed by your doctor. This is in case symptomsreturn suddenly. ??? Try repositioning maneuvers at home if your doctor instructs you to do so. ?? Follow-up care Follow up with your doctor or an ear, nose, and throat specialist (ENT or nightclub manager), or as directed. Tell your doctor about any ringing in your ear or hearing loss. If you had a CT or MRI scan, a specialist will review it. You'll be told of any new findings that may affect your care. ?? When to contact your doctor Contact your doctor right away if: ??? Your vertigo gets worse. ??? You have repeated vomiting. ???You have weakness that gets worse. ??? You have trouble hearing. ??? You have a fever of 100.4??F (38??C) or higher, or as directed by your doctor. ?? Call 911 Call 911 right away if: ??? You faint. ??? You have a severe headache, confusion, or abnormal drowsiness. ??? You have weakness of an arm or leg or one side of the face. ??? You have trouble??with speech or vision. ??? You have trouble walking. ??? You have a seizure. ??? You have a fast heart rate. ??? You have chest pain. ??? You are short of breath. ?? Last Reviewed Date: 2024 00:00:00 ?? [id number] [employer] All rights reserved. This information is not intended as a substitute for professional medical care. Always follow your healthcare professional's instructions. ?? * Kelli Jack RN: PERFORM, SIGN, VERIFY Event Display: Case Management Discharge Plan Authored Date: [id number] Patient: NICHOLAS BLANCHARD Age: 84 years Sex: Female : 1940 Associated Diagnoses: None Author: Kelli Jack RN Discharge Plan Case Management Discharge Plan : Case Management Discharge Plan Data 02/28/2025 15:06 EST Discharge Level of Care at Discharge residential facility Discharge Nursing Homes/Rehab Facilities [facility] Discharge Transportation Arranged [facility] [address] [place] [phone] Discharge Arranged Transport Date/Time 03/01/2025 11:00 Mode of Transportation Arranged Ambulance Name of Agency #1 [facility] Service Categories #1 Occupational Therapy, Physical Therapy, Custodial Electronically Signed on 02/28/25 03:07 PM Kelli Jack RN Patient Care team information Care Team Personnel Name: Galina Salgado RN Position: [facility] RN Member Role: Primary Care Nurse Name: Yojana Matias RN Position: [facility] RN Member Role: Primary Care Nurse Name: Luciana Cisse RN Position: [facility] Outreach Member Role: Primary Care Nurse Name: Louise Cobb RN Position: [facility] RN Member Role: Primary Care Nurse Name: Casa SONG Nicholas Position: [facility] RN Member Role: Primary Care Nurse Name: Lexii Noonan Position: [facility] Outreach Member Role: Lifetime Consulting Physician Name: Kyra France RN Position: [facility] RN Member Role: Primary Care Nurse Name: Abimael Ring MD Position: [facility] Physician - Primary Care Member Role: PCP Address: [address] [place] [address] Telecom: Name: Jackson Segura RN Position: [facility] RN Member Role: Primary Care Nurse Name: Lali [Ashlyn UMANA Position: [facility] RN Member Role: Primary Care Nurse Name: Marko Marmolejo RN Position: S RN Member Role: Primary Care Nurse Name: Mariah Jose LPN Position: S RN Member Role: Primary Care Nurse Name: Monica Sterling RN Position: [facility] RN Member Role: Primary Care Nurse Name: Fernanda Gipson RN Position: S RN Member Role: Primary Care Nurse Name: Kayla Ashraf RN, I Position: [facility] RN Member Role: Primary Care Nurse Care Team Related Persons Name: MAYUR PADMAJA Insurance Providers Guarantor name: NICHOLAS BLANCHARD [employer] Plan Information #: 1 Payer: MEDICARE A INPT 26 Payer Identifier: Member Number: [id number] Group Number: Subscriber Identifier: [id number] Relationship to Subscriber: self Coverage Type: MEDICARE Coverage Verification Date: NA Telecom: NA Address: Health Plan Information #: 2 Payer: [facility] [employer] Payer Identifier: Member Number: [id number] Group Number: [id number] Subscriber Identifier: [id number] Relationship to Subscriber: self Coverage Type: Commercial Indemnity Coverage Verification Date: NA Telecom: NA Address:
--- OUTSIDE RECORDS SUMMARY | 2025-03-02 12:05 | XMS_ITS | Encounter Summary ---
Author Organization [facility] Address [address] [place] [address] Care Team Providers Care Cupola Mechanic Name Role Phone Abimael Ring MD Primary Care Provider [phone] Encounter Details Date Type Department Care Team (Late Contact Info) Description 01/21/2024 Lab Requisition [facility] - Main Lab [address] [facility] [place] [address] Gala Maynard MD [address] [facility] 1 [place] [address] Unspecified atrial fibrillation (CMS/HCC V24, CMS/HCC V28) Social History Tobacco Use Types Packs/Day Years Used Date Smoking Tobacco: Never Smokeless Tobacco: Never Alcohol Use Standard Drinks/Week Comments Never 0 (1 standard drink = 0.6 oz pur e alcohol) Comments Unknown Sex and Gender Information Value Date Recorded Sex Assigned at Not on file Legal Sex Female 11:39 AM EST Gender Identity Not on file Sexual Orientation Not on file documented as of this encounter Plan of Treatment Upcoming Encounters Date Type Department Care Team (Late Contact Info) Description 04/18/2025 1:00 PM EST Office Visit Bariatric Surgery - [place] [address] [facility] [address] [place] [address] Albert Ayala MD [address] [place] [phone] documented as of this encounter Visit Diagnoses Diagnosis Unspecified atrial fibrillation (CMS/HCC V24, CMS/HCC V28) documented in this encounter Care Teams Cupola Mechanic Relationship Specialty Start Date End Date Abimael Ring MD [address] PCP - General Internal Medicine 08/02/24 documented as of this encounter
--- OUTSIDE RECORDS SUMMARY | 2025-03-02 12:05 | XMS_ITS | Clinical Summary ---
Author Organization 175 [facility] Address [address] [place] [address] Phone Care Team Providers Care Field Instructor Name Role Phone Abimael Ring MD Primary Care Provider [phone] Allergies Active Allergy Reactions Criticality Noted Date Comments Gluten Diarrhea 09/02/2022 Lactose Diarrhea 09/02/2022 Medications acetaminophen (TYLENOL 8 HOUR) 650 mg 8 hr tablet Take 1 tablet (650 mg total) by mouth every 8 (eight) hours if needed. Active citalopram (CeleXA) 20 mg tablet Take 1 tablet (20 mg total) by mouth 1 (one) time each day. Active diclofenac epolamine (FLECTOR) 1.3 % Apply topically. Active dilTIAZem XR (DILACOR XR) 240 mg 24 hr capsule Take 1 capsule (240 mg total) by mouth 1 (one) time each day. Active omeprazole (PriLOSEC) [address] capsule Take 1 capsule (40 mg total) by mouth 1 (one) time each day. Active tolterodine LA (DETROL LA) 4 mg 24 hr capsule Take 1 capsule (4 mg total) by mouth 1 (one) time each day. Active warfarin (COUMADIN) 5 mg tablet Take 1 tablet (5 mg total) by mouth. Active Gemtesa 75 mg tablet tablet 1 TABLET DAILY 02/27/20 24 Active warfarin sodium (WARFARIN ORAL) Take 7.5 mg by mouth. 05/21/19 23 Active tolterodine LA (DETROL LA) 4 mg 24 hr capsule Take 1 capsule (4 mg total) by mouth. 10/07/19 22 Active olmesartan (BENICAR) 40 mg tablet Take 1 tablet (40 mg total) by mouth 1 (one) time each day. Active omeprazole (PriLOSEC) [address] capsule Take 1 capsule (40 mg total) by mouth. 01/26/20 18 Active traMADoL (ULTRAM) 50 mg tablet TAKE 1 TABLET BY MOUTH 3 TIMES A DAY NEEDED FOR 7 DAYS 02/21/20 24 Active tirzepatide, weight loss, (Zepbound) 7.5 mg/0.5 mL injection INJECT 0.5 ML (7.5 MG) UNDER THE SKIN EVERY 7 DAYS FOR 28 DAYS. 2 mL 02/19/20 25 Active tirzepatide, weight loss, (Zepbound) 7.5 mg/0.5 mL injection Inject 0.5 mL (7.5 mg total) under the skin every 7 (seven) days for 28 days. 2 mL 01/10/20 25 025 Discontinued tirzepatide, weight loss, (Zepbound) 10 mg/0.5 mL injection Inject 0.5 mL (10 mg total) under the skin every 7 (seven) days. 2 mL 1 02/18/20 25 025 Discontinued(Do se adjustment) Active Problems Problem Noted Date Diagnosed Date Elevation of level of transa minase and lactic acid dehydrogenase (LDH) 10/16/2024 Severe obesity 10/16/2024 Oral thrush 10/16/2024 Varicose vein of leg 10/16/2024 Class 3 severe obesity with body mass index (BMI) of 45.0 to 49.9 in adult 03/28/2024 Lymphedema, not elsewhere classified 12/10/2023 Polyosteoarthritis, unspecified 12/10/2023 Muscle wasting and atrophy, not elsewhere classified, multiple sites 12/10/2023 Hypertensive chronic kidney disease w stg 1-4/un sp chr kdny 12/10/2023 Unspecified protein-calorie malnutrition 024 Constipation, unspecified 12/10/2023 Anemia in chronic kidney disease 12/10/2023 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, left humerus, subsequent encounter for fracture with routine healing 12/10/2023 Acute kidney failure, unspecified 12/10/2023 Disorder of vein 10/03/2023 Atrial fibrillation 10/03/2023 Osteoarthritis of knee 10/03/2023 Muscle atrophy 10/03/2023 Major depression, single episode 10/03/2023 Gastroesophageal reflux disease without esophagi tis 10/03/2023 Fracture of shaft of humerus 10/03/2023 Essential hypertension 10/03/2023 Deficiency of macronutrients 10/03/2023 Peripheral venous insufficiency 09/29/2023 Anxiety 09/01/2022 Atrial fibrillation with RVR 09/01/2022 Chronic diarrhea 09/01/2022 IBS (irritable bowel syndrome) 09/01/2022 Lymphedema 09/01/2022 Transaminitis 09/01/2022 Venous insufficiency 09/01/2022 Encounters Date Type Department Care Team Description 02/11/2025 Telephone Bariatric Surgery [address] [phone] Albert Ayaal MD 01/07/2025 Telephone Bariatric Surgery [address] [phone] Albert Ayala MD 12/25/2024 2:15 PM EDT Office Visit Bariatric Surgery [address] [phone] Albert Ayala MD Class 3 severe obesity due to excess calories with body mass index (BMI) of 45.0 to 49.9 in adult, unspecified whether serious comorbidity present (CMS/[facility] V24, CMS/[facility] V28) (Primary Dx) 12/10/2024 Telephone Bariatric Surgery [address] [phone] Albert Ayala MD from Last 3 Months Social History Tobacco Use Types Packs/Day Years Used Date Smoking Tobacco: Never Smokeless Tobacco: Never Alcohol Use Standard Drinks/Week Comments Never 0 (1 standard drink = 0.6 oz pur e alcohol) Comments Unknown Sex and Gender Information Value Date Recorded Sex Assigned at Not on file Legal Sex Female 11:39 AM EST Gender Identity Not on file Sexual Orientation Not on file Last Filed Vital Signs Vital Sign Reading Time Taken Comments Blood Pressure 117/72 12/25/2024 2:17 PM EDT Pulse 81 12/25/2024 2:17 PM EDT Temperature 36.5 C (97.7 F) 12/25/2024 2:17 PM EDT Respiratory Rate - - Oxygen Saturation - - Inhaled Oxygen Concentration - - Weight 124 kg (273 lb) 12/25/2024 2:17 PM EDT Height 162.6 cm (5' 4 ) 12/25/2024 2:17 PM EDT Body Mass Index 46.86 12/25/2024 2:17 PM EDT Plan of Treatment Upcoming Encounters Date Type Department Care Team (Late st Contact Info) Description 04/18/2025 1:00 PM EST Office Visit Bariatric Surgery - [place] [address] [facility] [address] [place] [address] Albert Ayala MD [facility] [place] [address] Health Maintenance Due Date Last Done Comments Pneumococcal Vaccine: 50+ Years (1 of 1 - PCV) 1992 RSV Immunization Adult Patients (1 - 1-dose 75+ series) 2017 Cholesterol Screening (Lipid Panel) 04/19/2023 Falls Risk Assessment 04/19/2023 Medicare Annual Wellness Visit 04/19/2023 Osteoporosis Screening (Bone Density Screening) 04/19/2023 Social Influencers of Health Screening 04/19/2023 Hypertension/CHF/CAD Annual BMP Blood Test 03/06/2024 Depression Screening 03/21/2024 COVID-19 Vaccine ( season) 2024 03/12/2024, 01/10/2023, 12/21/2021, Additional history exists Influenza Vaccine (#1) 2024 , 12/24/2022, 12/14/2021, Additional history exists DTaP,Tdap,and Td Vaccines (2 - Td or Tdap) 10/01/2033 10/02/2023 Zoster Vaccines Completed 08/09/2018, 06/08/2018 HIB Vaccines Aged Out No longer eligi ble based on patient's age to complete this topic HPV Vaccines Aged Out No longer eligi ble based on patient's age to complete this topic Hepatitis A Vaccines Aged Out No long er eligible based on patient's age to complete this topic Hepatitis B Vaccines Aged Out No long er eligible based on patient's age to complete this topic IPV Vaccines Aged Out No longer eligi ble based on patient's age to complete this topic MMR Vaccines Aged Out No longer eligi ble based on patient's age to complete this topic Meningococcal ACWY Vaccine Aged Out N o longer eligible based on patient's age to complete this topic Meningococcal B Vaccine Aged Out No l onger eligible based on patient's age to complete this topic RSV Immunization Patients Under 20 months Aged Out No longer eligible based on patient's age to complete this topic Varicella Vaccines Aged Out No longer eligible based on patient's age to complete this topic Insurance MEDICARE [facility] Care Teams Field Instructor Relationship Specialty Start Date End Date Abimael Ring MD [address] [place] [address] PCP - General Internal Medicine 08/02/24
[2025-03-02 12:13] LABS: INTERNATIONAL NORM RATIO 1.4 (0.9-1.1); Prothrombin Time 16.9 SEC (11.2-13.5)
== END 2025-03-02 12:01 | disposition home or self-care (01) ==
LOC: HO.MMNH2L 12:00
PROVIDERS: Visit Provider Physician Assistant Medical
DX: Z86.718 Personal history of other venous thrombosis and embolism (principal)
CPT/HCPCS: 36415; 85610

== ENCOUNTER 2025-03-04 08:28 | Outpatient (REF) | payer SELFPAY ==
[2025-03-04 08:32] LABS: MANUAL DIFF FLAG NO
[2025-03-04 08:57] LABS: Hematocrit 43.2 % (37.0-47.0); Hemoglobin 13.5 g/dl (12.0-16.0); Imm Gran Abs Auto 0.02 X10*3/uL (0.00-0.03); Imm Gran Pct Auto 0.2 % (0.0-0.4); Lymphocytes Absolute Auto 1.0 X10*3/uL (1.2-4.9); Mean Corpuscular HGB Conc 31.3 g/dl (31.0-35.0); Mean Corpuscular Hemoglobin 26.1 pg (27.0-33.0); Mean Corpuscular Volume 83.6 fL (80.0-98.0); NRBC Abs Auto 0.000 X10*3/uL (0.0-0.012); NRBC Pct Auto 0.0 /100WBC (0.0-0.2); Platelet Count 260 X10*3/uL (160-400); Red Blood Count 5.17 X10*6/uL (4.20-5.50); White Blood Count 8.0 X10*3/uL (4.8-10.8)
[2025-03-04 09:11] LABS: Alanine Aminotransferase 30 U/L (0-31); Albumin Level 3.7 g/dL (3.5-5.0); Alkaline Phosphatase 85 U/L (39-117); Anion Gap 15 (12-20); Aspartate Amino Transferase 36 U/L (5-31); Blood Urea Nitrogen 20 mg/dL (9-16); Calcium 10.5 mg/dL (8.4-10.2); Carbon Dioxide 27 mmol/L (22-29); Chloride 104 mmol/L (96-108); Estimated Glomerular Filt Rate 57; Potassium 4.3 mmol/L (3.3-5.1); Sodium 142 mmol/L (135-145); Total Protein 6.5 g/dL (6.5-8.0)
== END 2025-03-04 08:29 | disposition home or self-care (01) ==
LOC: HO.MMNH2L 08:28
PROVIDERS: Visit Provider Physician Assistant Medical
DX: Z13.1 Encounter for screening for diabetes mellitus (principal); Z13.0 Encounter for screening for diseases of the blood and blood-forming organs and certain disorders involving the immune mechanism; S42.392D Other fracture of shaft of left humerus, subsequent encounter for fracture with routine healing; M62.59 Muscle wasting and atrophy, not elsewhere classified, multiple sites
CPT/HCPCS: 36415; 80053; 83036; 85025

== ENCOUNTER 2025-03-12 06:56 | Outpatient (REF) | payer SELFPAY ==
--- OUTSIDE RECORDS SUMMARY | 2025-03-12 06:59 | XMS_ITS | Encounter Summary ---
Author Organization [facility] Address [address] [place] [address] Care Team Providers Care Relay Operator Name Role Phone Abimael Ring MD Primary Care Provider [phone] Encounter Details Date Type Department Care Team (Late Contact Info) Description 01/21/2024 Lab Requisition [facility] - Main Lab [address] [facility] [place] [address] Gala Maynard MD [address] [facility] 1 [place] [address] Unspecified atrial fibrillation (CMS/HCC V24, CMS/HCC V28) [...] PM EST Office Visit Bariatric Surgery - [place] [address] [facility] [address] [place] [address] Albert Ayala MD [address] [place] [phone] documented as of this encounter Visit Diagnoses Diagnosis Unspecified atrial fibrillation (CMS/HCC V24, CMS/HCC V28) documented in this encounter Care Teams Relay Operator Relationship Specialty Start Date End Date Abimael Ring MD [address] PCP - General Internal Medicine 08/02/24 documented as of this encounter
--- OUTSIDE RECORDS SUMMARY | 2025-03-12 06:59 | XMS_ITS | Clinical Summary ---
Author Organization 175 [facility] Address [address] [place] [address] Phone Care Team Providers Care Orthopedic Cast Specialist Name Role Phone Abimael Ring MD Primary Care Provider [phone] Allergies Active Allergy Reactions Criticality Noted Date [...] Care Team Description 02/11/2025 Telephone Bariatric Surgery [address] [phone] Albert Ayala MD 01/07/2025 Telephone Bariatric Surgery [address] [phone] Albert Ayala MD 12/25/2024 2:15 PM EDT Office Visit Bariatric Surgery [address] [phone] Albert Ayala MD Class 3 severe obesity due to excess calories with body mass index (BMI) of 45.0 to 49.9 in adult, unspecified whether serious comorbidity present (CMS/[facility] V24, [facility] V28) (Primary Dx) from Last 3 Months Social History Tobacco [...] PM EST Office Visit Bariatric Surgery - [place] [address] [place] [address] Albert Ayala MD [address] [place] [phone] Health Maintenance Due Date Last Done [...] age to complete this topic Insurance MEDICARE [facility] Care Teams Orthopedic Cast Specialist Relationship Specialty Start Date End Date Abimael Ring MD [address] [place] [address] PCP - General Internal Medicine 08/02/24
[2025-03-12 07:49] LABS: INTERNATIONAL NORM RATIO 2.6 (0.9-1.1); Prothrombin Time 31.1 SEC (11.2-13.5)
== END 2025-03-12 06:57 ==
LOC: HO.MMNH2L 06:56
PROVIDERS: Visit Provider Physician Assistant Medical
DX: Z86.718 Personal history of other venous thrombosis and embolism (principal)
CPT/HCPCS: 36415; 85610

== ENCOUNTER 2025-03-19 06:57 | Outpatient (REF) | payer SELFPAY ==
[2025-03-19 07:50] LABS: INTERNATIONAL NORM RATIO 1.8 (0.9-1.1); Prothrombin Time 21.2 SEC (11.2-13.5)
--- OUTSIDE RECORDS SUMMARY | 2025-03-19 08:42 | XMS_ITS | Clinical Summary ---
Author Organization 175 [facility] Address [address] [place] [address] Phone Care Team Providers Care Political Science Research Assistant Name Role Phone Abimael Ring MD Primary Care Provider [phone] Allergies Active Allergy Reactions Criticality Noted Date [...] Care Team Description 02/11/2025 Telephone Bariatric Surgery [address] [phone] Albert Ayala MD 01/07/2025 Telephone Bariatric Surgery [address] [phone] Albert Ayala MD 12/25/2024 2:15 PM EDT Office Visit Bariatric Surgery [address] [phone] Albert Ayala MD Class 3 severe obesity due to excess calories with body mass index (BMI) of 45.0 to 49.9 in adult, unspecified whether serious comorbidity present (CMS/[facility] V24, [facility] V28) [...] PM EST Office Visit Bariatric Surgery - [place] [address] [place] [address] Albert Ayala MD [address] [place] [phone] Health Maintenance Due Date Last Done [...] age to complete this topic Insurance MEDICARE Member Subscriber Plan / Payer (Ef fective 2007-Present) Name:JUSTINLITEmmy ALEX[place]RI[place] Member ID:[id number] Relation to Subscriber:Self Name:[place] Lyndsey Subscriber ID:[id number] Payer ID:Not on file Group ID:Not on file Type:Medicare Address: [facility] [address] [place] [phone] [facility] Care Teams Political Science Research Assistant Relationship Specialty Start Date End Date Abimael Ring MD [address] [place] [address] PCP - General Internal Medicine 08/02/24
--- OUTSIDE RECORDS SUMMARY | 2025-03-19 08:42 | XMS_ITS | Encounter Summary ---
Author Organization [facility] Address [address] [place] [address] Care Team Providers Care Aquarist Name Role Phone Abimael Ring MD Primary Care Provider [phone] Encounter Details Date Type Department Care Team (Late Contact Info) Description 01/21/2024 Lab Requisition [facility] - Main Lab [address] [facility] [place] [address] Gala Maynard MD [address] [facility] 1 [place] [address] Unspecified atrial fibrillation (CMS/HCC V24, CMS/HCC V28) [...] PM EST Office Visit Bariatric Surgery - [place] [address] [facility] [address] [place] [address] Albert Ayala MD 230 [place] [phone] documented as of this encounter Visit Diagnoses Diagnosis Unspecified atrial fibrillation (CMS/HCC V24, CMS/HCC V28) documented in this encounter Care Teams Aquarist Relationship Specialty Start Date End Date Abimael Ring MD [address] PCP - General Internal Medicine 08/02/24 documented as of this encounter
[2025-03-19 11:27] LABS: Chlamydia pneumoniae PCR Not Detected (Not Detect.); Coronavirus 229E PCR Not Detected (Not Detect.); Coronavirus HKU1 PCR Not Detected (Not Detect.); Coronavirus NL63 PCR Not Detected (Not Detect.); Coronavirus OC43 PCR Not Detected (Not Detect.); Influenza A H3 PCR Detected (Not Detect.); RSV PCR Not Detected (Not Detect.); Rhino/Enterovirus PCR Not Detected (Not Detect.); SARS-CoV-2 PCR Not Detected (Not Detect.)
[2025-03-19 11:37] LABS: Influenza A H1 PCR Not Detected (Not Detect.); Influenza A H1-2009 PCR Not Detected (Not Detect.)
== END 2025-03-19 06:58 | disposition home or self-care (01) ==
LOC: HO.MMNH2L 06:57
PROVIDERS: Visit Provider Physician Assistant Medical
DX: M62.59 Muscle wasting and atrophy, not elsewhere classified, multiple sites (principal); I82.409 Acute embolism and thrombosis of unspecified deep veins of unspecified lower extremity
CPT/HCPCS: 36415; 85610; 87633; 87637